=== PATIENT | male | born 1980 | race Caucasian/White ===

== ENCOUNTER 2016-09-12 21:17 | Emergency (ER) | payer OTHER ==
[~2016-09-12 21:17] MED LIST: ARIP400S3 IM; DOXY100T PO; GABA-585 PO; LITH450T16 PO; LITH600C PO; LURA80TA PO; MELA3TAB2 PO; METF500T4 PO; OLAN5TAB3 PO; OMEG1CAP6 PO; QUET50TA5 PO; TRAZ50TA15 PO
[2016-09-12] MEDS ORDERED: THIAMINE 200 MG/2 ML VIAL. IV ONE (21:56)
[2016-09-12] MEDS ORDERED: MVI, ADULT NO.4 WITH VIT K 10 ML VIAL IV ONE (21:56)
[2016-09-12] MEDS ORDERED: IV DEXTROSE 5 %-0.45 % NACL 1,000 ML ONE (21:56)
[2016-09-12] MEDS ORDERED: FOLIC ACID 5 MG/ML SYRINGE for ER IV ONE (21:57)
[2016-09-12] MEDS ORDERED: MVI, ADULT NO.4 WITH VIT K 10 ML, FOLIC ACID SYRINGE for ER 1 MG, THIAMINE 100 MG in IV... IV ONE ×4 (22:00)
--- NOTE | 2016-09-12 22:00 | EKG ---
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
[2016-09-12 22:06] LABS: BASO # 0.1 x10^3/uL (0.0-0.2); BASO % 1 % (0-3); EOS # 0.2 x10^3/uL (0.0-0.7); EOS % 1 % (0-3); HEMATOCRIT 48.1 % (39.0-53.0); HEMOGLOBIN 16.5 g/dL (13.0-17.5); LYMPH # 3.8 x10^3/uL (1.0-4.8); LYMPH % 33 % (24-48); MEAN CORPUSCULAR HEMOGLOBIN 31 pg (25-35); MEAN CORPUSCULAR HGB CONC 34 g/dL (31-37); MEAN CORPUSCULAR VOLUME 89 fL (79-100); MONO # 0.7 x10^3/uL (0.0-1.1); MONO % 7 % (0-9); NEUT # 6.6 x10^3uL (1.8-7.7); NEUT % 58 % (31-73); PLATELET COUNT 148 x10^3/uL (140-400); RED CELL DISTRIBUTION WIDTH 13.7 % (11.5-14.5); WHITE BLOOD COUNT 11.5 x10^3/uL (4.0-11.0)
[2016-09-12 22:11] LABS: CALCIUM 8.9 mg/dL (8.5-10.1); CREATININE 0.9 mg/dL (0.7-1.3); POTASSIUM 3.7 mmol/L (3.5-5.1)
[2016-09-12 22:15] LABS: AMPHETAMINE/METHAMPHETAMINE NEG (NEG); BARBITURATES NEG (NEG); BENZODIAZEPINES NEG (NEG); CANNABINOIDS NEG (NEG); COCAINE NEG (NEG); METHADONE NEG (NEG); OPIATES NEG (NEG); PHENCYCLIDINE NEG (NEG)
[2016-09-12 22:17] LABS: ACETAMIN < 2.0 mcg/mL (10-30); SALIC 5.1 mg/dL (2.8-20.0)
[2016-09-12 22:25] LABS: BACTERIA,URINE 0 /HPF (0-FEW); BILIRUBIN,URINE NEG (NEG); CLARITY,URINE CLEAR; COLOR,URINE YELLOW; GLUCOSE,URINE NEG (NEG); NITRITE,URINE NEG (NEG); RBC,URINE RARE /HPF (0-2); UROBILINOGEN,URINE 0.2 mg/dL (0.2 mg/dL); WBC,URINE OCC /HPF (0-4)
[2016-09-12 22:26] LABS: SQUAMOUS EPITHELIAL CELL,UR FEW /LPF
[2016-09-12 23:46] VITALS: BP 111/65
--- NOTE | 2016-09-13 09:16 | RAD ---
Exam: PA and lateral chest radiograph History: Cough, alcohol intoxication. Comparison: 06/09/2015. Findings: Cardiomediastinal silhouette is within normal limits for size. Bilateral lung lopez are free of focal infiltrate. No pleural effusion is seen. Impression: No acute cardiopulmonary process.
== END 2016-09-13 00:55 | disposition home or self-care (01) ==
LOC: ER 21:17
DX: R45.851 Suicidal ideations (principal); F10.10 Alcohol abuse, uncomplicated; F32.9 Major depressive disorder, single episode, unspecified; E11.9 Type 2 diabetes mellitus without complications; F41.9 Anxiety disorder, unspecified; F12.10 Cannabis abuse, uncomplicated; Z88.6 Allergy status to analgesic agent
CPT/HCPCS: 36415; 71020; 80048; 80305; 81001; 85027; 93005; 96365; 99285; G0480; 80320; G0481

== ENCOUNTER 2017-06-24 12:40 | Emergency (ER) | payer OTHER ==
[~2017-06-24] VITALS: Ht 182.9 cm; Wt 107.0 kg
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
[2017-06-24 13:12] LABS: AMPHETAMINE/METHAMPHETAMINE NEG (NEG); BARBITURATES NEG (NEG); BENZODIAZEPINES NEG (NEG); CANNABINOIDS NEG (NEG); COCAINE NEG (NEG); METHADONE NEG (NEG); OPIATES NEG (NEG); PHENCYCLIDINE NEG (NEG)
[2017-06-24 13:14] LABS: BILIRUBIN,URINE NEG (NEG); CLARITY,URINE CLEAR; COLOR,URINE YELLOW; GLUCOSE,URINE NEG (NEG); NITRITE,URINE NEG (NEG); RBC,URINE 0 /HPF (0-2); UROBILINOGEN,URINE 0.2 mg/dL (0.2 mg/dL)
[2017-06-24 13:15] LABS: BACTERIA,URINE 0 /HPF (0-FEW)
[2017-06-24] MEDS ORDERED: MVI, ADULT NO.4 WITH VIT K 10 ML, FOLIC ACID SYRINGE for ER 1 MG, THIAMINE 100 MG in IV... IV SCH ×4 (13:15)
[2017-06-24] MEDS ORDERED: LORazepam 2 MG/ML VIAL IV ONE (13:15)
[2017-06-24 13:21] LABS: BASO % 0 % (0-3); EOS # 0.3 x10^3/uL (0.0-0.7); EOS % 3 % (0-3); HEMATOCRIT 44.9 % (39.0-53.0); HEMOGLOBIN 15.6 g/dL (13.0-17.5); LYMPH # 3.2 x10^3/uL (1.0-4.8); LYMPH % 39 % (24-48); MEAN CORPUSCULAR HEMOGLOBIN 31 pg (25-35); MEAN CORPUSCULAR HGB CONC 35 g/dL (31-37); MEAN CORPUSCULAR VOLUME 88 fL (79-100); MONO # 0.4 x10^3/uL (0.0-1.1); MONO % 5 % (0-9); NEUT # 4.2 x10^3uL (1.8-7.7); NEUT % 52 % (31-73); PLATELET COUNT 153 x10^3/uL (140-400); RED BLOOD COUNT 5.09 x10^6/uL (4.30-5.70); RED CELL DISTRIBUTION WIDTH 14.1 % (11.5-14.5)
[2017-06-24 13:37] LABS: ACETAMIN < 2.0 mcg/mL (10-30); ALBUMIN 3.5 g/dL (3.4-5.0); ALK PHOS 61 U/L (46-116); ALT (SGPT) 96 U/L (16-63); ANION GAP 10 (6-14); AST (SGOT) 33 U/L (15-37); BLOOD UREA NITROGEN 9 mg/dL (8-26); CALCIUM 8.2 mg/dL (8.5-10.1); CARBON DIOXIDE 25 mmol/L (21-32); CHLORIDE 105 mmol/L (98-107); CREATININE 0.8 mg/dL (0.7-1.3); ETHANOL < 10 mg/dL (0-10); GFR 108.2; GLUCOSE 153 mg/dL (70-99); MAGNESIUM 1.9 mg/dL (1.8-2.4); POTASSIUM 3.5 mmol/L (3.5-5.1); SALIC 4.3 mg/dL (2.8-20.0); SODIUM 140 mmol/L (136-145); TOTAL BILIRUBIN 0.3 mg/dL (0.2-1.0); TOTAL PROTEIN 6.6 g/dL (6.4-8.2)
[2017-06-24 13:38] LABS: DIRECT BILIRUBIN < 0.1 mg/dL (0.0-0.2)
--- NOTE | 2017-06-24 13:42 | EKG ---
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
[2017-06-24 15:32] VITALS: BP 130/80
[2017-06-24 16:05] LABS: LI 0.4 mmol/L (0.6-1.2)
== END 2017-06-24 15:40 | disposition home or self-care (01) ==
LOC: ER 12:40
DX: R45.851 Suicidal ideations (principal); F25.9 Schizoaffective disorder, unspecified; F32.9 Major depressive disorder, single episode, unspecified; E11.9 Type 2 diabetes mellitus without complications; F12.10 Cannabis abuse, uncomplicated; F11.10 Opioid abuse, uncomplicated; F10.20 Alcohol dependence, uncomplicated; Z88.5 Allergy status to narcotic agent
CPT/HCPCS: 36415; 80048; 80076; 80178; 80307; 81001; 83735; 85025; 93005; 96365; 96375; 99285; G0480; J2060; G0479; J7030

== ENCOUNTER 2017-07-13 16:07 | Emergency (ER) | payer OTHER ==
[~2017-07-13] VITALS: Ht 182.9 cm; Wt 107.0 kg
[2017-07-13 16:59] LABS: BASO # 0.1 x10^3/uL (0.0-0.2); BASO % 1 % (0-3); EOS # 0.2 x10^3/uL (0.0-0.7); EOS % 2 % (0-3); HEMATOCRIT 47.8 % (39.0-53.0); HEMOGLOBIN 16.3 g/dL (13.0-17.5); LYMPH # 3.3 x10^3/uL (1.0-4.8); LYMPH % 34 % (24-48); MEAN CORPUSCULAR HEMOGLOBIN 30 pg (25-35); MEAN CORPUSCULAR HGB CONC 34 g/dL (31-37); MEAN CORPUSCULAR VOLUME 89 fL (79-100); MONO # 0.6 x10^3/uL (0.0-1.1); MONO % 6 % (0-9); NEUT # 5.7 x10^3uL (1.8-7.7); NEUT % 58 % (31-73); PLATELET COUNT 163 x10^3/uL (140-400); RED CELL DISTRIBUTION WIDTH 13.9 % (11.5-14.5); WHITE BLOOD COUNT 9.8 x10^3/uL (4.0-11.0)
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
[2017-07-13 17:11] LABS: ALBUMIN 3.9 g/dL (3.4-5.0); AMPHETAMINE/METHAMPHETAMINE NEG (NEG); BARBITURATES NEG (NEG); BENZODIAZEPINES NEG (NEG); CANNABINOIDS NEG (NEG); COCAINE NEG (NEG); CREATININE 0.9 mg/dL (0.7-1.3); DIRECT BILIRUBIN 0.1 mg/dL (0.0-0.2); GFR 94.4; METHADONE NEG (NEG); OPIATES NEG (NEG); PHENCYCLIDINE NEG (NEG); POTASSIUM 3.9 mmol/L (3.5-5.1); TOTAL BILIRUBIN 0.3 mg/dL (0.2-1.0); TOTAL PROTEIN 7.2 g/dL (6.4-8.2)
[2017-07-13 17:19] LABS: BACTERIA,URINE 0 /HPF (0-FEW); BILIRUBIN,URINE NEG (NEG); CLARITY,URINE CLEAR; COLOR,URINE YELLOW; GLUCOSE,URINE NEG (NEG); NITRITE,URINE NEG (NEG); RBC,URINE 0 /HPF (0-2); SQUAMOUS EPITHELIAL CELL,UR OCC /LPF; UROBILINOGEN,URINE 0.2 mg/dL (0.2 mg/dL); WBC,URINE OCC /HPF (0-4)
[2017-07-13 20:39] VITALS: BP 112/87
== END 2017-07-13 20:41 | disposition home or self-care (01) ==
LOC: ER 16:07 → EEVIPCON 16:07 → ER 20:41
DX: R45.851 Suicidal ideations (principal); R45.850 Homicidal ideations; E11.9 Type 2 diabetes mellitus without complications; F20.9 Schizophrenia, unspecified; F32.9 Major depressive disorder, single episode, unspecified; F41.9 Anxiety disorder, unspecified; F15.10 Other stimulant abuse, uncomplicated; F12.10 Cannabis abuse, uncomplicated; F11.10 Opioid abuse, uncomplicated; Z88.5 Allergy status to narcotic agent
CPT/HCPCS: 36415; 80048; 80076; 80307; 81001; 85025; 99284; G0480; G0479

== ENCOUNTER 2018-02-12 00:04 | Emergency (ER) | payer OTHER ==
[~2018-02-12] VITALS: Ht 182.9 cm; Wt 104.3 kg
[~2018-02-12 00:04] MED LIST changes: +METF500T16 PO; -METF500T4 PO; +TRAZ-85 PO; -TRAZ50TA15 PO
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
[2018-02-12] MEDS: oxyCODONE/APAP 5/325 1 TAB TABLET PO ONE (00:56)
[2018-02-12] MEDS: TETANUS AND DIPHTHERIA TOX/PF 0.5 ML VIAL. VAX IM ONE (00:57)
[2018-02-12 01:00] VITALS: BP 135/98
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
== END 2018-02-12 01:09 | disposition home or self-care (01) ==
LOC: ER 00:04
DX: S60.512A Abrasion of left hand, initial encounter (principal); F25.9 Schizoaffective disorder, unspecified; F19.10 Other psychoactive substance abuse, uncomplicated; F15.10 Other stimulant abuse, uncomplicated; F12.10 Cannabis abuse, uncomplicated; F14.10 Cocaine abuse, uncomplicated; F41.9 Anxiety disorder, unspecified; F32.9 Major depressive disorder, single episode, unspecified; E11.9 Type 2 diabetes mellitus without complications; F17.210 Nicotine dependence, cigarettes, uncomplicated; Z88.5 Allergy status to narcotic agent; W22.01XA Walked into wall, initial encounter; Y93.89 Activity, other specified; Y92.89 Other specified places as the place of occurrence of the external cause; Y99.8 Other external cause status
CPT/HCPCS: 29125; 73130; 90471; 90714; 99284-25

== ENCOUNTER 2018-07-18 23:36 | Emergency (ER) | payer MEDICAID, OTHER ==
[~2018-07-18] VITALS: Ht 182.9 cm; Wt 103.2 kg
[~2018-07-18 23:36] MED LIST changes: +TRAZ-120 PO; -TRAZ-85 PO
--- NOTE | 2018-07-18 23:47 | PHYS DOC ---
Past History Past Medical History: Anxiety, Depression, Diabetes, Schizophrenia, Other Past Surgical History: Other Smoking: Cigarettes Alcohol Use: Occasionally Drug Use: Amphetamine, Marijuana, Other Adult General Chief Complaint Chief Complaint: suicidal thoughts [facility] Patient is a 38-year-old male who presents with report of suicide attempt at home. Patient states that he has been depressed and feeling lonely and tonight started hearing voices in his mind telling him to just go ahead and kill himself. He states that initially he had planned to jump off of his balcony but states that something had stopped him. He states these not sure if it was got her what it was but he decided to get naked in bed and cut his wrists. He realized that he had only cut professionally and so decided that he was doing the wrong thing and decided to call 911. He does report to moderate pain in his wrist where he cut it. He denies any significant loss of blood. Review of Systems Review of Systems Constitutional: Denies fever or chills [] Respiratory: Denies cough or shortness of breath [] Cardiovascular: No additional information not addressed in HPI [] Integument: Positive laceration[] All other systems were reviewed and found to be within normal limits, except as documented in this note. Allergies Allergies Allergies Coded Allergies Type Severity Reaction Last Updated Verified codeine Allergy Intermediate 05/26/15 Yes Physical Exam Physical Exam Constitutional: Well developed, well nourished, no acute distress, non-toxic appearance. [] HENT: Normocephalic, atraumatic, bilateral external ears normal, oropharynx moist, no oral exudates, nose normal. [] Eyes: PERRLA, EOMI, conjunctiva normal, no discharge. [] Neck: Normal range of motion, no tenderness, supple, no stridor. [] Cardiovascular: Mildly tachycardic rate with regular rhythm[] Lungs & Thorax: Bilateral breath sounds clear to auscultation [] Abdomen: Bowel sounds normal, soft, no tenderness. [] Skin: Warm, dry. [] Back: No tenderness, no CVA tenderness. [] Extremities: There is very superficial cuts/lacerations to both wrists, with right wrist worse. Lacerations extend no further than dermis and require no repair. [] Neurologic: Alert and oriented X 3, no focal deficits noted. [] Psychologic: Flattened affect with depressed mood. [] EKG EKG [] Radiology/Procedures Radiology/Procedures [] Course & Med Decision Making Course & Med Decision Making Pertinent Labs and Imaging studies reviewed. (See chart for details) Patient seen and evaluated by ER medical staff and a mental health work up has been completed on this patient. At this time patient is medically cleared and is awaiting placement at mental health facility. Patient is being signed out to oncoming ER physician, Dr. Ham, at 6:00 AM. Dragon Disclaimer Dragon Disclaimer This electronic medical record was generated, in whole or in part, using a voice recognition dictation system. Departure Departure: Impression: Primary Impression: Suicidal ideation Additional Impression: Acute psychosis Referrals: JOSE MOYER (PCP) Problem Qualifiers ANTONIO UGARTE Jr. DO Jul 18, 2018 23:47
[2018-07-19 00:18] LABS: BASO # 0.1 x10^3/uL (0.0-0.2); BASO % 1 % (0-3); EOS # 0.3 x10^3/uL (0.0-0.7); EOS % 3 % (0-3); HEMATOCRIT 45.9 % (39.0-53.0); HEMOGLOBIN 15.9 g/dL (13.0-17.5); LYMPH # 3.6 x10^3/uL (1.0-4.8); LYMPH % 35 % (24-48); MEAN CORPUSCULAR HEMOGLOBIN 30 pg (25-35); MEAN CORPUSCULAR HGB CONC 35 g/dL (31-37); MEAN CORPUSCULAR VOLUME 86 fL (79-100); MONO # 0.8 x10^3/uL (0.0-1.1); MONO % 7 % (0-9); NEUT # 5.4 x10^3uL (1.8-7.7); NEUT % 53 % (31-73); PLATELET COUNT 171 x10^3/uL (140-400); RED BLOOD COUNT 5.36 x10^6/uL (4.30-5.70); RED CELL DISTRIBUTION WIDTH 13.7 % (11.5-14.5); WHITE BLOOD COUNT 10.2 x10^3/uL (4.0-11.0)
[2018-07-19 00:25] LABS: AMPHETAMINE/METHAMPHETAMINE NEG (NEG); BARBITURATES NEG (NEG); BENZODIAZEPINES NEG (NEG); CANNABINOIDS NEG (NEG); COCAINE NEG (NEG); METHADONE NEG (NEG); OPIATES NEG (NEG); PHENCYCLIDINE NEG (NEG)
[2018-07-19 00:26] LABS: ACETAMIN < 2 mcg/mL (10-30); ETHANOL < 10 mg/dL (0-10); SALIC 2.6 mg/dL (2.8-20.0)
[2018-07-19 00:28] LABS: ALBUMIN 3.8 g/dL (3.4-5.0); CALCIUM 8.7 mg/dL (8.5-10.1); CREATININE 1.1 mg/dL (0.7-1.3); DIRECT BILIRUBIN 0.1 mg/dL (0.0-0.2); GFR 74.5; POTASSIUM 3.3 mmol/L (3.5-5.1); TOTAL BILIRUBIN 0.6 mg/dL (0.2-1.0); TOTAL PROTEIN 7.2 g/dL (6.4-8.2)
[2018-07-19] MEDS ORDERED: IV NORMAL SALINE 1,000ML 1,000 ML IV ONE (00:30)
[2018-07-19 00:33] LABS: BILIRUBIN,URINE NEG (NEG); CLARITY,URINE CLEAR; COLOR,URINE AMBER; GLUCOSE,URINE NEG (NEG)
[2018-07-19 00:34] LABS: BACTERIA,URINE 0 /HPF (0-FEW); NITRITE,URINE NEG (NEG); RBC,URINE 0 /HPF (0-2); SQUAMOUS EPITHELIAL CELL,UR OCC /LPF; UROBILINOGEN,URINE 0.2 mg/dL (0.2 mg/dL); WBC,URINE 0 /HPF (0-4)
[2018-07-19] MEDS ORDERED: NEOMY/BACITR/POLYMYXIN OINT PACKET. TP ONE (01:30)
[2018-07-19] MEDS ORDERED: IBUPROFEN 600 MG TABLET. PO ONE (01:30)
[2018-07-19] MEDS ORDERED: POTASSIUM CHLORIDE 20 MEQ TABLET.ER. PO ONE (07:15)
[2018-07-19 07:20] VITALS: BP 119/79
== END 2018-07-19 07:51 | disposition short-term general hospital (02) ==
LOC: ER 23:36
DX: S61.511A Laceration without foreign body of right wrist, initial encounter (principal); F23 Brief psychotic disorder; R45.851 Suicidal ideations; F41.9 Anxiety disorder, unspecified; F31.9 Bipolar disorder, unspecified; E11.9 Type 2 diabetes mellitus without complications; F20.9 Schizophrenia, unspecified; F17.210 Nicotine dependence, cigarettes, uncomplicated; Z88.5 Allergy status to narcotic agent; X78.8XXA Intentional self-harm by other sharp object, initial encounter; Y93.89 Activity, other specified; Y92.89 Other specified places as the place of occurrence of the external cause; Y99.8 Other external cause status
CPT/HCPCS: 36415; 80048; 80076; 80307; 80329; 81001; 85025; 99285; G0480; 82003; J7030

== ENCOUNTER 2018-08-05 15:11 | Inpatient (IN) | payer OTHER ==
[~2018-08-05] VITALS: Ht 182.9 cm; Wt 98.7 kg
[2018-08-05] MEDS ORDERED: IV NORMAL SALINE 1,000ML 1,000 ML IV ONE (15:30)
[2018-08-05] MEDS ORDERED: ONDANSETRON PF 4 MG/2 ML VIAL. ONE (15:39)
[2018-08-05 15:47] LABS: BASO # 0.1 x10^3/uL (0.0-0.2); BASO % 1 % (0-3); EOS # 0.1 x10^3/uL (0.0-0.7); EOS % 1 % (0-3); HEMATOCRIT 46.9 % (39.0-53.0); HEMOGLOBIN 15.9 g/dL (13.0-17.5); LYMPH # 2.5 x10^3/uL (1.0-4.8); LYMPH % 20 % (24-48); MEAN CORPUSCULAR HEMOGLOBIN 29 pg (25-35); MEAN CORPUSCULAR HGB CONC 34 g/dL (31-37); MEAN CORPUSCULAR VOLUME 86 fL (79-100); MONO # 0.6 x10^3/uL (0.0-1.1); MONO % 5 % (0-9); NEUT # 8.9 x10^3uL (1.8-7.7); NEUT % 73 % (31-73); PLATELET COUNT 209 x10^3/uL (140-400); RED BLOOD COUNT 5.45 x10^6/uL (4.30-5.70); WHITE BLOOD COUNT 12.3 x10^3/uL (4.0-11.0)
--- NOTE | 2018-08-05 15:55 | PHYS DOC ---
Past History Past Medical History: Anxiety, Depression, Diabetes Past Surgical History: No Surgical History Smoking: Cigarettes Alcohol Use: Occasionally Drug Use: Marijuana Adult General Chief Complaint Chief Complaint: Suicide attempt HPI HPI 38-year-old male presents with suicide attempt. The patient has known mental health problems. He states that his schizophrenia. He told me that the voices told him to cut both of his wrists. They were quite compelling and he was unable to resist. The patient also took 10 NyQuil and 20 DayQuil at 1400. It is now 1550. The patient has had no vomiting but has some nausea. He has multiple suicide attempts in the past. He states that he is taking HIS psychiatric medications but he still is hearing voices. He was recently discharged from a psychiatric facility couple weeks ago. He denies fever or chills. He denies recent use of alcohol and states that he uses marijuana once a week. He denies fever or chills. Review of Systems Review of Systems Constitutional: Denies fever or chills [] Eyes: Denies change in visual acuity, redness, or eye pain [] HENT: Denies nasal congestion or sore throat [] Respiratory: Denies cough or shortness of breath [] Cardiovascular: No additional information not addressed in HPI [] GI: Denies abdominal pain, nausea, vomiting, bloody stools or diarrhea [] : Denies dysuria or hematuria [] Musculoskeletal: Denies back pain or joint pain [] Integument: forearm lacerations [] Neurologic: Denies headache, focal weakness or sensory changes [] Endocrine: Denies polyuria or polydipsia [] All other systems were reviewed and found to be within normal limits, except as documented in this note. Current Medications Current Medications Current Medications Medications (Trade) Dose Ordered Sig/Refugio Start Time Stop Time Status Last Admin Dose Admin Ondansetron HCl (Zofran) 4 mg 1X ONCE 08/05/18 15:45 08/05/18 15:46 UNV Sodium Chloride 1,000 ml @ 1,000 mls/hr 1X ONCE 08/05/18 15:30 08/05/18 16:29 Allergies Allergies Allergies Coded Allergies Type Severity Reaction Last Updated Verified codeine Allergy Intermediate 05/26/15 Yes Physical Exam Physical Exam Constitutional: Well developed, well nourished, no acute distress, non-toxic appearance. [] HENT: Normocephalic, atraumatic, bilateral external ears normal, oropharynx moist, no oral exudates, nose normal. [] Eyes: PERRLA, EOMI, conjunctiva normal, no discharge. [] Neck: Normal range of motion, no tenderness, supple, no stridor. [] Cardiovascular:Heart rate regular rhythm, no murmur [] Lungs & Thorax: Bilateral breath sounds clear to auscultation [] Abdomen: Bowel sounds normal, soft, no tenderness, no masses, no pulsatile masses. [] Skin: 4cm linear lacerations in the bilateral forearms, no deep layer involveme nt. [] Back: No tenderness, no CVA tenderness. [] Extremities: No tenderness, no cyanosis, no clubbing, ROM intact, no edema. [] Neurologic: Alert and oriented X 3, normal motor function, normal sensory function, no focal deficits noted. [] Psychologic: Affect blunted, judgement impaired, mood normal. [] Current Patient Data Lab Results Laboratory Tests Test 08/05/18 15:23 White Blood Count 12.3 x10^3/uL (4.0-11.0) H Red Blood Count 5.45 x10^6/uL (4.30-5.70) Hemoglobin 15.9 g/dL (13.0-17.5) Hematocrit 46.9 % (39.0-53.0) Mean Corpuscular Volume 86 fL (79-100) Mean Corpuscular Hemoglobin 29 pg (25-35) Mean Corpuscular Hemoglobin Concent 34 g/dL (31-37) Red Cell Distribution Width 14.0 % (11.5-14.5) Platelet Count 209 x10^3/uL (140-400) Neutrophils (%) (Auto) 73 % (31-73) Lymphocytes (%) (Auto) 20 % (24-48) L Monocytes (%) (Auto) 5 % (0-9) Eosinophils (%) (Auto) 1 % (0-3) Basophils (%) (Auto) 1 % (0-3) Neutrophils # (Auto) 8.9 x10^3uL (1.8-7.7) H Lymphocytes # (Auto) 2.5 x10^3/uL (1.0-4.8) Monocytes # (Auto) 0.6 x10^3/uL (0.0-1.1) Eosinophils # (Auto) 0.1 x10^3/uL (0.0-0.7) Basophils # (Auto) 0.1 x10^3/uL (0.0-0.2) EKG EKG Sinus rhythm, rate 69, normal axis, no SOB lesions or depressions, QTC 402[] Radiology/Procedures Radiology/Procedures [] Course & Med Decision Making Course & Med Decision Making Pertinent Labs and Imaging studies reviewed. (See chart for details) His EKG does not have a prolonged QT. The patient has been very cooperative and appreciative of our care. The patient's labs are significant for an acetaminophen level of 83.7. This is roughly a 2 hour level. A four-hour level has been ordered. His lactic acid is also 2.4. The patient is given 2 L normal saline. Poison control has been consulted and we are monitoring the patient's labs and EKG as advised. The patient is mentating well at this time. He is complaining of some altered sensorium and mild vision "fogginess". He is able to answer all questions appropriately. I was able to repair the patient's 2 forearm lacerations. See note below for details. I discussed the patient with Dr. Hong and he has agreed to admit the patient. Repeat acetaminophen level will performed prior to admission. [] Dragon Disclaimer Dragon Disclaimer This electronic medical record was generated, in whole or in part, using a voice recognition dictation system. Laceration Repair Lac Repair Indication: []Suture repair of 2 lacerations of the forearm. One on each forearm, each 4 cm in length. Procedure: The patient gave me verbal consent for suture repair of his 2 forearm lacerations. The wounds were thoroughly irrigated with saline Hibiclens solution. No foreign bodies were found. I anesthetized the patient with 2% lidocaine with epinephrine. A total of 2 mL was used on each side for a grand total of 4 mL. After good anesthesia was achieved, I repaired the right arm laceration with 6 4-0 Ethilon sutures in interrupted fashion. There was good skin approximation. There was no further bleeding. I repaired the left forearm with 6 4-0 Ethilon sutures in interrupted fashion. There was also good skin approximation and no further bleeding. Total repaired wound length: [4cm, 4cm Other Items: [2 lacerations The patient tolerated the procedure well. Complications: none. Departure Departure: Impression: Primary Impression: Suicide attempt by substance overdose Additional Impressions: Suicide attempt by method other than substance overdose Schizophrenia Disposition: ADMITTED INPATIENT Condition: GUARDED Referrals: JOSE MOYER (PCP) Problem Qualifiers Primary Impression: Suicide attempt by substance overdose Encounter type: initial encounter Qualified Codes: T65.92XA - Toxic effect of unspecified substance, intentional self-harm, initial encounter Additional Impressions: Schizophrenia Schizophrenia type: unspecified Qualified Codes: F20.9 - Schizophrenia, unspecified TRUDY GUAMAN DO Aug 05, 2018 15:55
[2018-08-05] MEDS ORDERED: ONDANSETRON PF 4 MG/2 ML VIAL. IV ONE (16:00)
[2018-08-05 16:01] LABS: ACETAMIN 83.7 mcg/mL (10-30); SALIC 3.2 mg/dL (2.8-20.0)
[2018-08-05 16:02] LABS: ALBUMIN/GLOBULIN RATIO 1.1 (1.0-1.7); CALCIUM 9.2 mg/dL (8.5-10.1); GFR 83.2; POTASSIUM 3.8 mmol/L (3.5-5.1); TOTAL BILIRUBIN 0.4 mg/dL (0.2-1.0); TOTAL PROTEIN 7.5 g/dL (6.4-8.2)
--- NOTE | 2018-08-05 17:43 | EKG ---
[address] [address] Test Date: 2018-08-05 Test Time: 16:17:24 Pat Name: ELEAZAR PERAZA Department: Room: Gender: M [employer]: NANCY : 1980 Requested By: TRUDY GUAMAN Order Number: [id number] Reading MD: Migel Dobbs Measurements Intervals [place] Rate: 69 P: -30 OK: 168 QRS: 35 QRSD: 88 T: 19 QT: 374 QTc: 402 Interpretive Statements SINUS RHYTHM NONSPECIFIC ST-T WAVE CHANGES. POSSIBLY ABNORMAL ECG Electronically Signed On 08-12-2018 11:18:08 CDT by Migel Dobbs
[2018-08-05 17:49] LABS: BACTERIA,URINE 0 /HPF (0-FEW); BILIRUBIN,URINE NEG (NEG); CLARITY,URINE CLEAR; COLOR,URINE YELLOW; GLUCOSE,URINE NEG (NEG); NITRITE,URINE NEG (NEG); RBC,URINE 0 /HPF (0-2); SQUAMOUS EPITHELIAL CELL,UR OCC /LPF; UROBILINOGEN,URINE 0.2 mg/dL (0.2 mg/dL)
[2018-08-05 17:50] LABS: AMORPHOUS SEDIMENT,UR PRESENT /HPF; BARBITURATES NEG (NEG); BENZODIAZEPINES NEG (NEG); CANNABINOIDS NEG (NEG); COCAINE NEG (NEG); METHADONE NEG (NEG); OPIATES NEG (NEG); PHENCYCLIDINE NEG (NEG)
[2018-08-05 17:51] LABS: AMPHETAMINE/METHAMPHETAMINE NEG (NEG)
[2018-08-05 18:51] LABS: ACETAMIN 82.8 mcg/mL (10-30)
[2018-08-05 19:29] VITALS: BP 147/96
[2018-08-05 20:20] VITALS: BP 144/96
[2018-08-05] MEDS ORDERED: POTASSIUM CL 20MEQ D5-0.9%NACL 1,000 ML IV SCH (21:00)
[2018-08-05] MEDS: INSULIN LISPRO 300 UNITS/3 ML INSULN.PEN. SQ SCH (21:00)
[2018-08-05] MEDS ORDERED: GABAPENTIN 100 MG CAPSULE. PO SCH (21:00)
[2018-08-05] MEDS ORDERED: DEXTROSE 50% 25 GM / 50ML DISP.SYRIN. IV PRN (21:00)
[2018-08-05 21:15] VITALS: BP 147/88
[2018-08-05] MEDS: NICOTINE 21MG PATCH. TD SCH (22:00)
[2018-08-05] MEDS: GABAPENTIN 300 MG CAPSULE. PO SCH (22:05)
[2018-08-05] MEDS: MELATONIN 3 MG TABLET PO SCH (22:05)
[2018-08-05] MEDS: ONDANSETRON PF 4 MG/2 ML VIAL. IV PRN (22:06)
[2018-08-05] MEDS: LITHIUM CARBONATE ER 450 MG TABLET.ER PO SCH (22:21)
[2018-08-05] MEDS: POTASSIUM CL 20MEQ D5-0.45NACL 1,000 ML IV SCH (22:22)
[2018-08-05 22:43] VITALS: BP 157/84
[2018-08-06] VITALS (19 sets, daily range): BP systolic 120–161; BP diastolic 68–95
[2018-08-06 06:41] LABS: BASO # 0.1 x10^3/uL (0.0-0.2); BASO % 1 % (0-3); EOS # 0.2 x10^3/uL (0.0-0.7); EOS % 2 % (0-3); HEMATOCRIT 41.1 % (39.0-53.0); HEMOGLOBIN 14.1 g/dL (13.0-17.5); LYMPH # 2.8 x10^3/uL (1.0-4.8); LYMPH % 36 % (24-48); MEAN CORPUSCULAR HEMOGLOBIN 30 pg (25-35); MEAN CORPUSCULAR HGB CONC 34 g/dL (31-37); MEAN CORPUSCULAR VOLUME 87 fL (79-100); MONO # 0.5 x10^3/uL (0.0-1.1); MONO % 7 % (0-9); NEUT # 4.2 x10^3uL (1.8-7.7); NEUT % 54 % (31-73); PLATELET COUNT 171 x10^3/uL (140-400); RED BLOOD COUNT 4.72 x10^6/uL (4.30-5.70); RED CELL DISTRIBUTION WIDTH 14.4 % (11.5-14.5); WHITE BLOOD COUNT 7.7 x10^3/uL (4.0-11.0)
[2018-08-06 06:51] LABS: ALBUMIN 3.1 g/dL (3.4-5.0); ALBUMIN/GLOBULIN RATIO 1.1 (1.0-1.7); CALCIUM 7.8 mg/dL (8.5-10.1); CREATININE 0.9 mg/dL (0.7-1.3); GFR 93.9; POTASSIUM 3.9 mmol/L (3.5-5.1); TOTAL BILIRUBIN 0.5 mg/dL (0.2-1.0)
[2018-08-06] MEDS: INSULIN LISPRO 300 UNITS/3 ML INSULN.PEN. SQ SCH ×3 (07:30→16:30)
[2018-08-06 08:27] LABS: ACETAMIN 4.9 mcg/mL (10-30)
[2018-08-06] MEDS: LURASIDONE 40 MG TABLET. PO SCH (08:27)
[2018-08-06] MEDS: POTASSIUM CL 20MEQ D5-0.45NACL 1,000 ML IV SCH ×2 (08:27→18:00)
[2018-08-06] MEDS: NICOTINE 21MG PATCH. TD SCH (08:27)
[2018-08-06] MEDS: GABAPENTIN 300 MG CAPSULE. PO SCH ×2 (08:27→20:16)
[2018-08-06] MEDS: LITHIUM CARBONATE ER 450 MG TABLET.ER PO SCH ×2 (08:27→20:15)
[2018-08-06] MEDS: ONDANSETRON PF 4 MG/2 ML VIAL. IV PRN (11:03)
--- NOTE | 2018-08-06 17:04 | HP ---
ADMIT DATE: 08/05/2018 HISTORY OF PRESENT ILLNESS: The patient is a 38-year-old male patient, who presented to Emergency Room with suicidal attempt. The patient has known mental health problems. He stated that he has schizophrenia and that his voices told him to cut both of his wrists. They were quite compelling and he was unable to resist. The patient also took 10 NyQuil and 20 DayQuil at 2:00 and around 1550. He arrived to the Emergency Room. The patient has denied any vomiting, but has some nausea. By the time arrived, he has multiple suicidal attempts in the past. He stated that he has been taking his psychiatric medication. He still is hearing voices, who was recently discharged from the psychiatric facility only 2 weeks ago. He denied any recent use of alcohol or other drugs. He was evaluated in the Emergency Room and he was found to have a laceration of his both wrists that were repaired, one on each forearm each about 4 cm in length. His Tylenol level when he arrived was about 18.3 and 4 hours later, it was 82.8 and his level has been declining. The Poison Control Center was informed and we followed all their recommendation. Apparently, the patient did not require any antidote and was admitted to ICU with one-on-one sitter. PAST MEDICAL HISTORY: Significant for type 2 diabetes as well as depression and schizophrenia. PAST SURGICAL HISTORY: Significant for removal of cyst in his left kidney about three and a half years ago. ALLERGIES: HE IS ALLERGIC TO CODEINE. MEDICATIONS: He is currently on following medications: He is on gabapentin 300 mg twice a day, trazodone 50 mg at bedtime, aripiprazole 400 mg intramuscular, Latuda 120 mg p.o. daily, olanzapine 5 mg every other day. He is on lithium carbonate 450 mg twice a day, metformin 500 mg daily and melatonin 3 mg at bedtime. FAMILY HISTORY: He has 2 sisters, both older and healthy. His mother has diabetes and father is healthy. SOCIAL HISTORY: He is single, has no children. He smokes at least he used to smoke 2 packs a day. He did drink alcohol heavily, although he does not drink any more alcohol or used to smoke marijuana. REVIEW OF SYSTEMS: The patient stated that his voices were compelling and he was [id number] to resist his orders. Denied any blurring of vision, cataract, glaucoma or macular degeneration. Denied any stuffy nose, postnasal drip or nosebleeds. Denied any sore throat, sore tongue, toothache, hoarseness of voice or difficulty swallowing. Did complain of nausea, but no vomiting. Denied any diarrhea or constipation. Denied any hematemesis, melena or hematochezia. Denied any dysuria, frequency or hematuria. PHYSICAL EXAMINATION: VITAL SIGNS: His heart rate on arrival was 76, blood pressure 165/95, temperature was 98.9, respiratory rate 20, and oxygen saturation was 97%. HEAD, EYES, EARS, NOSE AND THROAT: Showed normocephalic, atraumatic. NECK: Supple. HEART: Showed normal first and second heart sounds with no gallop, rub or murmur. CHEST: Clear to auscultation. No crepitation or rhonchi. ABDOMEN: Distended, soft, nontender. NEUROLOGIC: He was awake, alert, responding appropriately. All cranial nerves intact. EXTREMITIES: He moves extremities without difficulty, has one laceration about 4 cm long on each side of the forearm, longitudinal as well cleaned and sutured by the ER physician. LABORATORY DATA: His lab work on arrival showed a white cell count of 12,300, hemoglobin 15.9, hematocrit 46.9, MCV 86 and platelet count 209,000 with normal manual differential. His chemistry showed a serum sodium 140, potassium 3.8, chloride 103, bicarbonate 25, anion gap of 12, BUN 8, creatinine 1, estimated GFR was 83 mL per minute, his glucose 135, calcium was 9.2. Total bilirubin, AST, ALT, alkaline phosphatase were normal. Total protein was 7.5, albumin was 4. Urinalysis showed the urine was yellow, clear with a pH of 5.5, specific gravity of 1.015. The urine was negative for protein, glucose, ketones, blood, nitrite and leukocyte esterase. There are no rbc's, 1-4 wbc's and very few bacteria. His toxic screen showed that his Tylenol level was 83.7 while salicylate was only 3.2. Toxic screen was negative for opiate, methadone, barbiturates, phencyclidine, amphetamine, methamphetamine, benzodiazepine, cocaine, cannabinoids and alcohol. The patient was admitted to the ICU and his Tylenol level was monitored as per Poison Control Center. Obviously, if indicated he will be started on acetylcysteine. YADIRA COSTA MD DR: Camilla JOB#: [id number] / [id number]
[2018-08-06] MEDS: MELATONIN 3 MG TABLET PO SCH (20:15)
[2018-08-06] MEDS: oxyCODONE IR 5 MG TABLET PO PRN (20:15)
--- NOTE | 2018-08-06 21:21 | PN ---
DATE: 08/06/2018 SUBJECTIVE: The patient was admitted yesterday with a suicide attempt by slitting his both wrists, likely longitudinally, although he has bled significantly. No neurovascular damage was sustained. His laceration was cleaned and sutured at the Emergency Room; however, he also took DayQuil and NyQuil and his Tylenol level was high at 83.7 that came down steadily, do not require any antidote and by this morning, his Tylenol level was only 4.9 mcg/mL. The patient is awake, alert. He apparently is remorseful and did not realize that the acetaminophen can be lethal. The plan is for the Tylenol level ____ before he can be considered for inpatient psychiatric admission. PHYSICAL EXAMINATION: GENERAL: When I saw him this afternoon, he looked well and was clearly in no apparent respiratory distress. No pallor, jaundice or cyanosis. No lymphadenopathy, no thyromegaly. No jugular venous distension. No lower limb edema. VITAL SIGNS: His heart rate was 68, blood pressure 136/68, temperature was 98.4, respiratory rate 20, and oxygen saturation was 99%. The rest of clinical examination is stable, has not really changed. His intake over the last 24 hours was 2250, and output was 600. LABORATORY DATA: His lab work this morning showed his white cell count is down to 7700, hemoglobin 14, hematocrit 41, MCV 87, and platelet count of 171,000. His chemistry showed a serum sodium 140, potassium 3.8, chloride 103, bicarbonate 25, anion gap of 12, BUN 8, creatinine 1, estimated GFR was 83 mL per minute. His glucose 135, calcium was 9.2. Total bilirubin, AST, ALT, alkaline phosphatase were normal. His total protein was 7.5, albumin was 4. His Tylenol level this morning was 4.9 mcg/mL. ASSESSMENT: Suicidal attempt by substance overdose as well as by slitting his wrist, both sides; schizophrenia, and type 2 diabetes. YADIRA COSTA MD DR: JERE/simone JOB#: [id number] / [id number]
--- NOTE | 2018-08-06 22:36 | PDOC ---
Exam Note: Filippo Note: Please also refer to the separate dictated note~for this date of service dictated separately.~Patient seen individually. Discussed the patient with Nursing staff reviewed the chart.~Reviewed interim history and current functioning. Reviewed vital signs,~Labs/ Radiology~and current medications noted below. Continue current treatment with the changes noted in the dictated addendum note Assessment: Vital Signs: Vital Signs Date Time Temp Pulse Resp B/P (MAP) Pulse Ox O2 Delivery O2 Flow Rate FiO2 08/06/18 21:44 69 14 135/91 (106) Room Air 08/06/18 20:15 94 08/06/18 20:08 98.5 I&O Intake and Output 08/06/18 07:00 Intake Total 2259 ml Output Total 600 ml Balance 1659 ml Intake Oral 600 ml IV Total 1659 ml Output Urine Total 600 ml Labs: Laboratory Tests Test 08/06/18 05:45 08/06/18 19:54 White Blood Count 7.7 x10^3/uL (4.0-11.0) Red Blood Count 4.72 x10^6/uL (4.30-5.70) Hemoglobin 14.1 g/dL (13.0-17.5) Hematocrit 41.1 % (39.0-53.0) Mean Corpuscular Volume 87 fL (79-100) Mean Corpuscular Hemoglobin 30 pg (25-35) Mean Corpuscular Hemoglobin Concent 34 g/dL (31-37) Red Cell Distribution Width 14.4 % (11.5-14.5) Platelet Count 171 x10^3/uL (140-400) Neutrophils (%) (Auto) 54 % (31-73) Lymphocytes (%) (Auto) 36 % (24-48) Monocytes (%) (Auto) 7 % (0-9) Eosinophils (%) (Auto) 2 % (0-3) Basophils (%) (Auto) 1 % (0-3) Neutrophils # (Auto) 4.2 x10^3uL (1.8-7.7) Lymphocytes # (Auto) 2.8 x10^3/uL (1.0-4.8) Monocytes # (Auto) 0.5 x10^3/uL (0.0-1.1) Eosinophils # (Auto) 0.2 x10^3/uL (0.0-0.7) Basophils # (Auto) 0.1 x10^3/uL (0.0-0.2) Sodium Level 140 mmol/L (136-145) Potassium Level 3.9 mmol/L (3.5-5.1) Chloride Level 105 mmol/L (98-107) Carbon Dioxide Level 26 mmol/L (21-32) Anion Gap 9 (6-14) Blood Urea Nitrogen 8 mg/dL (8-26) Creatinine 0.9 mg/dL (0.7-1.3) Estimated GFR (Cockcroft-Gault) 93.9 BUN/Creatinine Ratio 9 (6-20) Glucose Level 124 mg/dL (70-99) H Calcium Level 7.8 mg/dL (8.5-10.1) #L Total Bilirubin 0.5 mg/dL (0.2-1.0) Aspartate Amino Transferase (AST) 18 U/L (15-37) Alanine Aminotransferase (ALT) 65 U/L (16-63) H Alkaline Phosphatase 54 U/L (46-116) Total Protein 6.0 g/dL (6.4-8.2) L Albumin 3.1 g/dL (3.4-5.0) L Albumin/Globulin Ratio 1.1 (1.0-1.7) Acetaminophen Level 4.9 mcg/mL (10-30) L Acetaminophen Last Dose Date 08/06/18 Acetaminophen Last Dose Time 1400 Glucose (Fingerstick) 134 mg/dL (70-99) H Current Medications: Meds: Current Medications Sodium Chloride 1,000 ml @ 1,000 mls/hr 1X ONCE IV Last administered on 08/05/18at 16:45; Start 08/05/18 at 15:30; Stop 08/05/18 at 16:29; Status DC Ondansetron HCl (Zofran) 4 mg STK-MED ONCE .ROUTE ; Start 08/05/18 at 15:39; Stop 08/05/18 at 15:40; Status DC Ondansetron HCl (Zofran) 4 mg 1X ONCE IV Last administered on 08/05/18at 16:45; Start 08/05/18 at 16:00; Stop 08/05/18 at 16:01; Status DC Gabapentin (Neurontin) 300 mg BID PO ; Start 08/05/18 at 21:00; Stop 08/05/18 at 21:27; Status DC Kirkpatrick Carbonate (Eskalith) 450 mg BID PO Last administered on 08/06/18 20:15; Start 08/05/18 at 22:00 Lurasidone HCl (Latuda) 120 mg DAILYWBKFT PO Last administered on 08/06/18 08:27; Start 08/06/18 at 08:00 Melatonin 3 mg HS PO Last administered on 08/06/18 20:15; Start 08/05/18 at 22:00 Olanzapine (ZyPREXA) 5 mg QODAY PO ; Start 08/07/18 at 09:00 Insulin Human Lispro (HumaLOG) 0-5 UNITS QIDACHS SQ ; Start 08/05/18 at 21:00; Stop 08/06/18 at 17:43; Status DC Dextrose (Dextrose 50%-Water Syringe) 12.5 gm PRN Q15MIN PRN IV SEE COMMENTS; Start 08/05/18 at 21:00 Ondansetron HCl (Zofran) 4 mg PRN Q4HRS PRN IV NAUSEA/VOMITING Last administered on 08/06/18 11:03; Start 08/05/18 at 21:00 Potassium Chloride/Dextrose/ Sod Cl 1,000 ml @ 100 mls/hr Q10H IV ; Start 08/05/18 at 21:00; Stop 08/05/18 at 22:03; Status DC Nicotine (Nicoderm Cq 21mg) 1 patch DAILY TD Last administered on 08/06/18 08:27; Start 08/05/18 at 22:00 Fentanyl Citrate (Fentanyl 2ml Vial) 25 mcg PRN Q3HRS PRN IV PAIN Last administered on 08/06/18 17:21; Start 08/05/18 at 21:00 Gabapentin (Neurontin) 300 mg BID PO Last administered on 08/06/18 20:16; Start 08/05/18 at 22:00 Potassium Chloride/Dextrose/ Sod Cl 1,000 ml @ 100 mls/hr Q10H IV Last administered on 08/06/18 18:00; Start 08/05/18 at 22:15 Oxycodone HCl (Roxicodone) 5 mg PRN Q6HRS PRN PO PAIN Last administered on 4/23/19at 20:15; Start 08/06/18 at 18:30 Active Scripts Active Reported Zyprexa (Olanzapine) 5 Mg Tablet 5 Mg PO QODAY Abilify Maintena (Aripiprazole) 400 Mg Suser.syr 400 Mg IM Kirkpatrick Carbonate 450 Mg Tablet.er 450 Mg PO BID Melatonin 3 Mg Tablet 3 Mg PO HS Gabapentin (Gabapentin) 100 Mg Capsule 300 Mg PO BID Metformin Hcl 500 Mg Tablet 500 Mg PO Latuda (Lurasidone Hcl) 80 Mg Tablet 120 Mg PO DAILY Trazodone Hcl 50 Mg Tablet 50 Mg PO HS I have reviewed the current psychotropics carefully including drug interactions. Risk benefit ratio favors no change other than as noted in my dictated progress note. Diagnosis: Problems: (1) Influenza A (2) Alcohol abuse (3) Depressed (4) Contusion (5) Suicidal ideation (6) Acute psychosis (7) Schizophrenia (8) Suicide attempt by substance overdose (9) Suicide attempt by method other than substance overdose PABLO BALDERAS MD Aug 06, 2018 22:36
[2018-08-07] VITALS (7 sets, daily range): BP systolic 99–140; BP diastolic 53–93
[2018-08-07] MEDS: POTASSIUM CL 20MEQ D5-0.45NACL 1,000 ML IV SCH ×2 (04:45→14:15)
[2018-08-07 08:00] LABS: HEMATOCRIT 43.7 % (39.0-53.0); HEMOGLOBIN 14.9 g/dL (13.0-17.5); RED BLOOD COUNT 5.07 x10^6/uL (4.30-5.70); RED CELL DISTRIBUTION WIDTH 13.8 % (11.5-14.5)
[2018-08-07] MEDS: LURASIDONE 40 MG TABLET. PO SCH (08:00)
[2018-08-07] MEDS: NICOTINE 21MG PATCH. TD SCH (08:11)
[2018-08-07] MEDS: LITHIUM CARBONATE ER 450 MG TABLET.ER PO SCH ×2 (08:11→21:06)
[2018-08-07] MEDS: GABAPENTIN 300 MG CAPSULE. PO SCH ×2 (08:11→21:06)
[2018-08-07 08:14] LABS: ACETAMIN < 2.0 mcg/mL (10-30)
[2018-08-07 08:17] LABS: ALBUMIN 3.4 g/dL (3.4-5.0); ALBUMIN/GLOBULIN RATIO 1.1 (1.0-1.7); CALCIUM 8.5 mg/dL (8.5-10.1); CREATININE 0.9 mg/dL (0.7-1.3); GFR 93.9; POTASSIUM 4.1 mmol/L (3.5-5.1); TOTAL BILIRUBIN 0.5 mg/dL (0.2-1.0); TOTAL PROTEIN 6.5 g/dL (6.4-8.2)
[2018-08-07] MEDS ORDERED: OLANZapine 5 MG TABLET PO SCH (09:00)
[2018-08-07] MEDS: oxyCODONE IR 5 MG TABLET PO PRN (14:03)
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
[2018-08-07] MEDS: MELATONIN 3 MG TABLET PO SCH (21:06)
--- NOTE | 2018-08-08 03:04 | PN ---
DATE: 08/07/2018 SUBJECTIVE: The patient is resting, slightly propped up in bed, in no apparent respiratory distress. He denied any complaint. Wounds in his both wrists have healed nicely with no redness, tenderness or discharge. His lab work has normalized completely. His lithium level is 0.6. Nursing staff did not voice any concern and stated that he had an uneventful night. The [facility] is working to place him in an inpatient Psychiatric unit and will be discharged as soon as bed becomes available. PHYSICAL EXAMINATION: GENERAL: When I examined him this afternoon, he looked well and was clearly in no apparent respiratory distress. No pallor, jaundice, cyanosis or thyromegaly. No jugular venous distension, no limb edema. VITAL SIGNS: His heart rate was 87, blood pressure was 127/79, temperature was 98.8, respiratory rate 12, and oxygen saturation was 93%. HEAD, EYES, EARS, NOSE AND THROAT: Normocephalic, atraumatic. NECK: Supple. HEART: Showed normal first and second heart sounds. No gallop, rub or murmur. CHEST: Clear to auscultation. No crepitation or rhonchi. ABDOMEN: Distended, soft, nontender. No guarding or rigidity. No organomegaly. All hernial orifices intact. Bowel sounds normal. NEUROLOGIC: He was awake, alert, and responding appropriately. Cranial nerves intact. He moves extremities without difficulty, ambulates without assistance or assistive device. His intake over the last 24 hours was 2250, output was 600. LABORATORY DATA: His lab work this morning showed that his white cell count was 7000, hemoglobin 15, hematocrit 44, MCV 86 and platelet count of 160,000. Serum sodium is 140, potassium 4.1, chloride 105, bicarbonate 28, anion gap of 7, BUN 5, creatinine is 0.9, estimated GFR was 94 mL per minute. His glucose 129, calcium was 8.5. Total bilirubin, AST, ALT, and alkaline phosphatase were normal. His total protein was 6.5, albumin was 3.4. Urinalysis essentially unremarkable and toxicology screen showed that his Tylenol level was only less than 2. ASSESSMENT AND PLAN: 1. Suicidal attempt by substance overdose. 2. Suicide attempt by method other than substance overdose. 3. Schizophrenia. 4. Type 2 diabetes. Plan is to discharge the patient once bed becomes available. YADIRA COSTA MD DR: Camilla JOB#: [id number] / [id number]
== END 2018-08-07 22:35 | DRG 908 ==
LOC: ER 15:11 → EEVIPCON 15:11 → ICU 18:10
PROVIDERS: ADMIT Internal Medicine; ATTEND Internal Medicine
PROC: 0XQHXZZ Repair Left Wrist Region, External Approach (ICD-10-PCS; principal; 2018-08-06)
PROC: 0XQGXZZ Repair Right Wrist Region, External Approach (ICD-10-PCS; 2018-08-06)
DX: T50.902A Poisoning by unspecified drugs, medicaments and biological substances, intentional self-harm, initial encounter (principal); R45.851 Suicidal ideations; E11.9 Type 2 diabetes mellitus without complications; F17.200 Nicotine dependence, unspecified, uncomplicated; F25.0 Schizoaffective disorder, bipolar type; F32.9 Major depressive disorder, single episode, unspecified; F41.9 Anxiety disorder, unspecified; S61.512A Laceration without foreign body of left wrist, initial encounter; S61.511A Laceration without foreign body of right wrist, initial encounter; X78.1XXA Intentional self-harm by knife, initial encounter; F10.10 Alcohol abuse, uncomplicated; Y90.9 Presence of alcohol in blood, level not specified; J10.1 Influenza due to other identified influenza virus with other respiratory manifestations; K59.00 Constipation, unspecified; Z83.3 Family history of diabetes mellitus; Z91.5 Personal history of self-harm; Z88.5 Allergy status to narcotic agent; Y93.89 Activity, other specified; Y92.89 Other specified places as the place of occurrence of the external cause; Y99.8 Other external cause status
CPT/HCPCS: 12004; 36415; 80053; 80178; 80307; 80329; 81001; 82947; 83605; 83735; 85025; 85027; 87641; 93005; 96361; 96374; G0480; J1815; J2405; J3010; 82003; 99285-25; J7030

== ENCOUNTER 2018-08-28 18:12 | Observation (INO) | payer OTHER ==
[~2018-08-28] VITALS: Ht 182.9 cm; Wt 105.7 kg
--- NOTE | 2018-08-28 18:14 | ED.ADGEN ---
Past History Past Medical History: Depression, Diabetes, Schizophrenia Past Surgical History: Other Smoking: Cigarettes Alcohol Use: Occasionally Drug Use: Marijuana Adult General Chief Complaint Chief Complaint "..I was taking my Indocin and Keflex... then shortly after wards... I started itching, got hives everywhere.. and wheezing..." HPI HPI Patient is a 38 year old male who presents with hx of hives, dyspnea and wheezing. Patient states is allergic reaction occurred within 30 minutes after taking Keflex and Indocin. Patient has audible wheeze. His entire body has hives. Does have some mild stridor and lipedema. Patient denies other recent medication usage. Patient normally follows with Dr. Pak. No recent travel. No specific ill contacts. Patient has not had problems previously with penicillin or Keflex. Patient does have a history of schizophrenic, bipolar, depression, and diabetes. Review of Systems Review of Systems Constitutional: Denies fever or chills [] Eyes: Denies change in visual acuity, redness, or eye pain [] HENT: Complains of nasal congestion and a" tight throat". Respiratory: Complains of wheezing Cardiovascular: No additional information not addressed in HPI [] GI: Denies abdominal pain, nausea, vomiting, bloody stools or diarrhea [] : Denies dysuria or hematuria [] Musculoskeletal: Denies back pain or joint pain []history of arthritic complaints Integument: Complains of hives and skin rash Neurologic: Denies headache, focal weakness or sensory changes [] Endocrine: Denies polyuria or polydipsia [] All other systems were reviewed and found to be within normal limits, except as documented in this note. Family History Family History Noncontributory Current Medications Current Medications Current Medications Medications (Trade) Dose Ordered Sig/Refugio Start Time Stop Time Status Last Admin Dose Admin Albuterol Sulfate (Ventolin Hfa Inhaler) 2 puff 1X ONCE 08/28/18 18:30 08/28/18 18:31 DC Albuterol/ Ipratropium (Duoneb) 3 ml Q4HRS W/A 08/28/18 22:00 Diphenhydramine HCl (Benadryl) 50 mg QID 08/28/18 21:00 Famotidine (Pepcid Vial) 20 mg BID 08/28/18 21:00 Lactated Ringer's 1,000 ml @ 200 mls/hr Q5H 08/28/18 21:00 Magnesium Hydroxide (Milk Of Magnesia) 2,400 mg BID 08/28/18 21:00 Methylprednisolone Sodium Succinate (SOLU-Medrol 40MG VIAL) 40 mg QID 08/28/18 21:00 Methylprednisolone Sodium Succinate (SOLU-Medrol 125MG VIAL) 125 mg 1X ONCE 08/28/18 18:30 08/28/18 18:43 DC 08/28/18 18:37 125 MG Ondansetron HCl (Zofran) 4 mg PRN Q4HRS PRN 08/28/18 18:45 08/29/18 18:44 Prednisone (Prednisone) 60 mg 1X ONCE 08/28/18 18:30 08/28/18 18:31 DC 08/28/18 18:36 60 MG Allergies Allergies Allergies Coded Allergies Type Severity Reaction Last Updated Verified codeine Allergy Intermediate 05/26/15 Yes Physical Exam Physical Exam Constitutional: in acute distress, non-toxic appearance. [] HENT: Normocephalic, atraumatic, bilateral external ears normal, oropharynx moist, no oral exudates, nose swollen turbinates and rhinorrhea. Lips are s wollen. Eyes: PERRLA, EOMI, conjunctiva normal, no discharge. [] Neck: Normal range of motion, no tenderness, supple, has mild stridor. [] Cardiovascular: Tachycardia Heart rate regular rhythm, no murmur [] Lungs & Thorax: Bilateral breath sounds equal with wheezing throughout on auscultation [] Abdomen: Bowel sounds normal, soft, no tenderness, no masses, no pulsatile masses. [] Skin: Hives and erythemic rash over entire body Back: No tenderness, no CVA tenderness. [] Extremities: No tenderness, no cyanosis, no clubbing, ROM intact, no edema. [] Neurologic: Alert and oriented X 3, normal motor function, normal sensory function, no focal deficits noted. [] Psychologic: Affect anxious, judgement normal, mood normal. [] Current Patient Data Vital Signs Vital Signs Date Time Temp Pulse Resp B/P (MAP) Pulse Ox O2 Delivery O2 Flow Rate FiO2 08/28/18 18:32 97 Room Air 08/28/18 18:30 97.8 114 18 Lab Results Laboratory Tests Test 5/15/19 18:26 White Blood Count 6.0 x10^3/uL (4.0-11.0) Red Blood Count 5.81 x10^6/uL (4.30-5.70) H Hemoglobin 16.9 g/dL (13.0-17.5) Hematocrit 49.7 % (39.0-53.0) Mean Corpuscular Volume 86 fL (79-100) Mean Corpuscular Hemoglobin 29 pg (25-35) Mean Corpuscular Hemoglobin Concent 34 g/dL (31-37) Red Cell Distribution Width 14.4 % (11.5-14.5) Platelet Count 192 x10^3/uL (140-400) Neutrophils (%) (Auto) 37 % (31-73) Lymphocytes (%) (Auto) 57 % (24-48) H Monocytes (%) (Auto) 4 % (0-9) Eosinophils (%) (Auto) 1 % (0-3) Basophils (%) (Auto) 1 % (0-3) Neutrophils # (Auto) 2.2 x10^3uL (1.8-7.7) Lymphocytes # (Auto) 3.4 x10^3/uL (1.0-4.8) Monocytes # (Auto) 0.3 x10^3/uL (0.0-1.1) Eosinophils # (Auto) 0.1 x10^3/uL (0.0-0.7) Basophils # (Auto) 0.0 x10^3/uL (0.0-0.2) Prothrombin Time 9.9 SEC (9.4-11.4) Prothrombin Time INR 1.0 (0.9-1.1) PTT 23 SEC (23-33) D-Dimer (Clemencia) 0.53 mg/L (0.00-0.50) H Sodium Level 138 mmol/L (136-145) Potassium Level 3.8 mmol/L (3.5-5.1) Chloride Level 102 mmol/L (98-107) Carbon Dioxide Level 22 mmol/L (21-32) Anion Gap 14 (6-14) Blood Urea Nitrogen 10 mg/dL (8-26) Creatinine 0.9 mg/dL (0.7-1.3) Estimated GFR (Cockcroft-Gault) 93.9 Glucose Level 214 mg/dL (70-99) H Calcium Level 8.8 mg/dL (8.5-10.1) Magnesium Level 1.9 mg/dL (1.8-2.4) Total Bilirubin 0.3 mg/dL (0.2-1.0) Direct Bilirubin 0.1 mg/dL (0.0-0.2) Aspartate Amino Transferase (AST) 43 U/L (15-37) H Alanine Aminotransferase (ALT) 103 U/L (16-63) H Alkaline Phosphatase 64 U/L (46-116) Creatine Kinase 31 U/L (39-308) L Creatine Kinase MB (Mass) < 0.5 ng/mL (0.0-3.6) Creatine Kinase MB Relative Index 1.6 % (0-4) Troponin I Quantitative < 0.017 ng/mL (0-0.055) Total Protein 6.8 g/dL (6.4-8.2) Albumin 3.6 g/dL (3.4-5.0) Lipase 89 U/L (73-393) EKG EKG My interpretation of EKG shows a sinus tachycardia at a 11 bpm. Some nonspecific anterior lateral contour changes. But no findings of acute STEMI with contrala teral changes.[] Radiology/Procedures Radiology/Procedures My interpretation of chest x-ray shows no specific consolidation. Lung volumes are limited. Borderline cardiac silhouette. No free air under diaphragm. No significant change from chest x-ray of 06-09-2015 except linear infiltrate noted on prior x-ray[] Course & Med Decision Making Course & Med Decision Making Pertinent Labs and Imaging studies reviewed. (See chart for details) Patient be admitted to Dr. Mills further evaluation and treatment. We will continue steroids, Benadryl, Pepcid and breathing treatments. Most likely will have continued allergic response until antibiotic Keflex or the Indocin is cleared. Noted at time of admission patient's stridor had cleared. Had much less wheezing and the generalized rash had somewhat cleared. [] Final Impression Final Impression 1. Allergic reaction- Keflex vs Indocin vs combination 2. Schizoaffective Disorder 3. Depression 4. Mild Elevation AST/ALT 43/103 5. DM 214.[] Dragon Disclaimer Dragon Disclaimer This electronic medical record was generated, in whole or in part, using a voice recognition dictation system. Discharge Summary Visit Information Final Diagnosis Problems Medical Problems: (1) Allergic reaction Status: Acute (2) Bronchitis Status: Acute Brief Hospital Course Allergies Allergies Coded Allergies Type Severity Reaction Last Updated Verified codeine Allergy Intermediate 05/26/15 Yes Vital Signs Vital Signs Date Time Temp Pulse Resp B/P (MAP) Pulse Ox O2 Delivery O2 Flow Rate FiO2 08/28/18 22:49 97.9 85 20 126/79 (95) 94 Room Air Lab Results Laboratory Tests Test 08/28/18 18:26 08/28/18 19:07 08/28/18 22:04 White Blood Count 6.0 x10^3/uL (4.0-11.0) Red Blood Count 5.81 x10^6/uL (4.30-5.70) Hemoglobin 16.9 g/dL (13.0-17.5) Hematocrit 49.7 % (39.0-53.0) Mean Corpuscular Volume 86 fL (79-100) Mean Corpuscular Hemoglobin 29 pg (25-35) Mean Corpuscular Hemoglobin Concent 34 g/dL (31-37) Red Cell Distribution Width 14.4 % (11.5-14.5) Platelet Count 192 x10^3/uL (140-400) Neutrophils (%) (Auto) 37 % (31-73) Lymphocytes (%) (Auto) 57 % (24-48) Monocytes (%) (Auto) 4 % (0-9) Eosinophils (%) (Auto) 1 % (0-3) Basophils (%) (Auto) 1 % (0-3) Neutrophils # (Auto) 2.2 x10^3uL (1.8-7.7) Lymphocytes # (Auto) 3.4 x10^3/uL (1.0-4.8) Monocytes # (Auto) 0.3 x10^3/uL (0.0-1.1) Eosinophils # (Auto) 0.1 x10^3/uL (0.0-0.7) Basophils # (Auto) 0.0 x10^3/uL (0.0-0.2) Prothrombin Time 9.9 SEC (9.4-11.4) Prothromb Time International Ratio 1.0 (0.9-1.1) Activated Partial Thromboplast Time 23 SEC (23-33) D-Dimer (Clemencia) 0.53 mg/L (0.00-0.50) Sodium Level 138 mmol/L (136-145) Potassium Level 3.8 mmol/L (3.5-5.1) Chloride Level 102 mmol/L (98-107) Carbon Dioxide Level 22 mmol/L (21-32) Anion Gap 14 (6-14) Blood Urea Nitrogen 10 mg/dL (8-26) Creatinine 0.9 mg/dL (0.7-1.3) Estimated GFR (Cockcroft-Gault) 93.9 Glucose Level 214 mg/dL (70-99) Calcium Level 8.8 mg/dL (8.5-10.1) Magnesium Level 1.9 mg/dL (1.8-2.4) Total Bilirubin 0.3 mg/dL (0.2-1.0) Direct Bilirubin 0.1 mg/dL (0.0-0.2) Aspartate Amino Transf (AST/SGOT) 43 U/L (15-37) Alanine Aminotransferase (ALT/SGPT) 103 U/L (16-63) Alkaline Phosphatase 64 U/L (46-116) Creatine Kinase 31 U/L (39-308) Creatine Kinase MB (Mass) < 0.5 ng/mL (0.0-3.6) Creatine Kinase MB Relative Index 1.6 % (0-4) Troponin I Quantitative < 0.017 ng/mL (0-0.055) Total Protein 6.8 g/dL (6.4-8.2) Albumin 3.6 g/dL (3.4-5.0) Lipase 89 U/L (73-393) Urine Collection Type Unknown Urine Color Yellow Urine Clarity Hazy Urine pH 5.0 Urine Specific [place] 1.015 Urine Protein Neg (NEG-TRACE) Urine Glucose (UA) 100 mg/dL (NEG) Urine Ketones (Stick) Neg mg/dL (NEG) Urine Blood Neg (NEG) Urine Nitrite Neg (NEG) Urine Bilirubin Neg (NEG) Urine Urobilinogen Dipstick 0.2 mg/dL (0.2 mg/dL) Urine Leukocyte Esterase Neg (NEG) Urine RBC 0 /HPF (0-2) Urine WBC 0 /HPF (0-4) Urine Squamous Epithelial Cells Occ /LPF Urine Bacteria 0 /HPF (0-FEW) Urine Opiates Screen Neg (NEG) Urine Methadone Screen Neg (NEG) Urine Barbiturates Neg (NEG) Urine Phencyclidine Screen Neg (NEG) Urine Amphetamine/Methamphetamine Neg (NEG) Urine Benzodiazepines Screen Neg (NEG) Urine Cocaine Screen Neg (NEG) Urine Cannabinoids Screen Neg (NEG) Urine Ethyl Alcohol Neg (NEG) Glucose (Fingerstick) 232 mg/dL (70-99) Brief Hospital Course Mr. Mehta is a 38 old male who presented with allergic reaction- possible Keflex or Indocin or combination . Admitted Dr. Mills. Discharge Information Condition at Discharge: Improved, Stable Disposition/Orders: D/C to Home Dischare Medications Current Medications Albuterol Sulfate (Ventolin Hfa Inhaler) 2 puff 1X ONCE INH ; Start 08/28/18 at 18:30; Stop 08/28/18 at 18:31; Status DC Prednisone (Prednisone) 60 mg 1X ONCE PO Last administered on 08/28/18at 18:36; Start 08/28/18 at 18:30; Stop 08/28/18 at 18:31; Status DC Lactated Ringer's 1,000 ml @ 1,000 mls/hr Q1H IV Last administered on 08/28/18at 18:36; Start 08/28/18 at 18:23; Stop 08/28/18 at 19:22; Status DC Albuterol/ Ipratropium (Duoneb) 3 ml 1X ONCE NEB Last administered on 08/28/18at 18:32; Start 08/28/18 at 18:30; Stop 08/28/18 at 18:43; Status DC Methylprednisolone Sodium Succinate (SOLU-Medrol 125MG VIAL) 125 mg 1X ONCE IV Last administered on 08/28/18 18:37; Start 08/28/18 at 18:30; Stop 08/28/18 at 18:43; Status DC Famotidine (Pepcid Vial) 20 mg 1X ONCE IVP Last administered on 08/28/18 18:37; Start 08/28/18 at 18:30; Stop 08/28/18 at 18:43; Status DC Diphenhydramine HCl (Benadryl) 50 mg 1X ONCE IV Last administered on 08/28/18at 18:37; Start 08/28/18 at 18:30; Stop 08/28/18 at 18:43; Status DC Magnesium Hydroxide (Milk Of Magnesia) 2,400 mg 1X ONCE PO Last administered on 08/28/18at 18:36; Start 08/28/18 at 18:30; Stop 08/28/18 at 18:43; Status DC Ondansetron HCl (Zofran) 4 mg PRN Q4HRS PRN IV NAUSEA/VOMITING; Start 08/28/18 at 18:45; Stop 08/29/18 at 18:44 Albuterol/ Ipratropium (Duoneb) 3 ml RTQID NEB ; Start 08/28/18 at 20:00; Stop 08/29/18 at 19:59; Status UNV Methylprednisolone Sodium Succinate (SOLU-Medrol 40MG VIAL) 40 mg QID IV Last administered on 08/28/18at 22:12; Start 08/28/18 at 21:00 Diphenhydramine HCl (Benadryl) 50 mg QID IV ; Start 08/28/18 at 21:00; Stop 08/28/18 at 21:00; Status DC Albuterol/ Ipratropium (Duoneb) 3 ml Q4HRS W/A NEB Last administered on at 21:49; Start 08/28/18 at 22:00 Famotidine (Pepcid Vial) 20 mg BID IVP Last administered on 08/28/18at 22:11; Start 08/28/18 at 21:00 Magnesium Hydroxide (Milk Of Magnesia) 2,400 mg BID PO Last administered on 08/28/18at 22:11; Start 08/28/18 at 21:00 Lactated Ringer's 1,000 ml @ 200 mls/hr Q5H IV ; Start 08/28/18 at 21:00 Gabapentin (Neurontin) 300 mg BID PO Last administered on 08/28/18at 22:12; Start 08/28/18 at 21:00 [place] Carbonate (Eskalith) 450 mg BID PO ; Start 08/28/18 at 21:00 Lurasidone HCl (Latuda) 120 mg DAILYWBKFT PO ; Start 08/29/18 at 08:00 Melatonin 3 mg QHS PO Last administered on 08/29/18at 00:44; Start 08/28/18 at 21:00 Olanzapine (ZyPREXA) 5 mg QODAY PO ; Start 08/30/18 at 09:00 Trazodone HCl (Desyrel) 50 mg QHS PO ; Start 08/28/18 at 21:00; Stop 08/28/18 at 21:00; Status DC Diphenhydramine HCl (Benadryl) 25 mg QID IV ; Start 08/29/18 at 09:00 Heparin Sodium (Porcine) (Heparin Sodium) 5,000 unit Q8HRS SQ Last administered on 08/28/18at 21:52; Start 08/28/18 at 22:00 Active Scripts Active Prednisone 50 Mg Tablet 50 Mg PO DAILY 5 Days Reported Levothyroxine Sodium 75 Mcg Tablet 75 Mcg PO DAILYAC Lisinopril 2.5 Mg Tablet 2.5 Mg PO DAILY Lipitor (Atorvastatin Calcium) 40 Mg Tablet 40 Mg PO QHS Lamictal (Lamotrigine) 100 Mg Tablet 100 Mg PO HS Januvia (Sitagliptin Phosphate) 50 Mg Tablet 50 Mg PO DAILY Zyprexa (Olanzapine) 5 Mg Tablet 5 Mg PO QODAY Abilify Maintena (Aripiprazole) 400 Mg Suser.syr 400 Mg IM Q3WK [place] Carbonate 450 Mg Tablet.er 450 Mg PO BID Melatonin 3 Mg Tablet 3 Mg PO HS Gabapentin (Gabapentin) 100 Mg Capsule 300 Mg PO BID Metformin Hcl 500 Mg Tablet 500 Mg PO BIDWMEALS Latuda (Lurasidone Hcl) 80 Mg Tablet 120 Mg PO DAILY Trazodone Hcl 50 Mg Tablet 50 Mg PO HS Dragon Disclaimer This chart was dictated in whole or in part using Voice Recognition software in a busy, high-work load, and often noisy Emergency Department environment. It may contain unintended and wholly unrecognized errors or omissions. AMAN WYNNE MD August 28, 2018 18:14
[2018-08-28] MEDS ORDERED: PRED50TA PO (18:16)
[2018-08-28] MEDS ORDERED: IV RINGERS SOLUTION,LACTATED 1,000 ML IV SCH ×2 (18:23→21:00)
[2018-08-28] MEDS ORDERED: FAMOTIDINE 20 MG/2 ML VIAL IVP ONE (18:30)
[2018-08-28] MEDS ORDERED: MAGNESIUM HYDROXIDE 2,400 MG/30 ML ORAL.SUSP. PO ONE (18:30)
[2018-08-28] MEDS ORDERED: IPRATRPIUM/ALBUTEROL 0.5/2.5MG 3 ML NEBU. NEB ONE (18:30)
[2018-08-28] MEDS ORDERED: methylPREDNISolone SOD SUCC PF 125 MG/2 ML VIAL. IV ONE (18:30)
[2018-08-28] MEDS ORDERED: diphenhydrAMINE 50 MG/ML VIAL IV ONE (18:30)
[2018-08-28] MEDS ORDERED: predniSONE 20 MG TABLET PO ONE (18:30)
[2018-08-28] MEDS ORDERED: ALBUTEROL SULFATE 8GM INHALER. INH ONE (18:30)
--- NOTE | 2018-08-28 18:34 | EKG ---
[address] [address] Test Date: 2018-08-28 Test Time: 18:22:33 Pat Name: ELEAZAR PERAZA Department: Room: Gender: M Loop Tender: VENTURA : 1980 Requested By: AMAN WYNNE Order Number: [id number] Reading MD: Rodger Martins Measurements Intervals [place] Rate: 111 P: 30 MS: 144 QRS: 52 QRSD: 84 T: 15 QT: 316 QTc: 433 Interpretive Statements SINUS TACHYCARDIA Electronically Signed On 09-20-2018 12:09:35 CDT by Rodger Martins
[2018-08-28 18:38] LABS: BASO % 1 % (0-3); EOS # 0.1 x10^3/uL (0.0-0.7); EOS % 1 % (0-3); HEMATOCRIT 49.7 % (39.0-53.0); HEMOGLOBIN 16.9 g/dL (13.0-17.5); LYMPH # 3.4 x10^3/uL (1.0-4.8); LYMPH % 57 % (24-48); MEAN CORPUSCULAR HEMOGLOBIN 29 pg (25-35); MEAN CORPUSCULAR HGB CONC 34 g/dL (31-37); MEAN CORPUSCULAR VOLUME 86 fL (79-100); MONO # 0.3 x10^3/uL (0.0-1.1); MONO % 4 % (0-9); NEUT # 2.2 x10^3uL (1.8-7.7); NEUT % 37 % (31-73); PLATELET COUNT 192 x10^3/uL (140-400); RED BLOOD COUNT 5.81 x10^6/uL (4.30-5.70); RED CELL DISTRIBUTION WIDTH 14.4 % (11.5-14.5)
[2018-08-28] MEDS ORDERED: ONDANSETRON PF 4 MG/2 ML VIAL. IV PRN (18:45)
[2018-08-28 19:15] LABS: ALBUMIN 3.6 g/dL (3.4-5.0); ALK PHOS 64 U/L (46-116); ALT (SGPT) 103 U/L (16-63); ANION GAP 14 (6-14); AST (SGOT) 43 U/L (15-37); BLOOD UREA NITROGEN 10 mg/dL (8-26); CALCIUM 8.8 mg/dL (8.5-10.1); CARBON DIOXIDE 22 mmol/L (21-32); CHLORIDE 102 mmol/L (98-107); CREATININE 0.9 mg/dL (0.7-1.3); DIRECT BILIRUBIN 0.1 mg/dL (0.0-0.2); GFR 93.9; GLUCOSE 214 mg/dL (70-99); LIPASE 89 U/L (73-393); MAGNESIUM 1.9 mg/dL (1.8-2.4); POTASSIUM 3.8 mmol/L (3.5-5.1); SODIUM 138 mmol/L (136-145); TOTAL BILIRUBIN 0.3 mg/dL (0.2-1.0); TOTAL PROTEIN 6.8 g/dL (6.4-8.2)
[2018-08-28] MEDS ORDERED: IPRATRPIUM/ALBUTEROL 0.5/2.5MG 3 ML NEBU. NEB SCH (20:00)
[2018-08-28 20:09] LABS: BACTERIA,URINE 0 /HPF (0-FEW); BILIRUBIN,URINE NEG (NEG); CLARITY,URINE HAZY; COLOR,URINE YELLOW; GLUCOSE,URINE 100 mg/dL (NEG); NITRITE,URINE NEG (NEG); RBC,URINE 0 /HPF (0-2); SQUAMOUS EPITHELIAL CELL,UR OCC /LPF; UROBILINOGEN,URINE 0.2 mg/dL (0.2 mg/dL); WBC,URINE 0 /HPF (0-4)
[2018-08-28 20:13] VITALS: BP 147/91
[2018-08-28 20:28] LABS: AMPHETAMINE/METHAMPHETAMINE NEG (NEG); BARBITURATES NEG (NEG); BENZODIAZEPINES NEG (NEG); CANNABINOIDS NEG (NEG); COCAINE NEG (NEG); METHADONE NEG (NEG); OPIATES NEG (NEG); PHENCYCLIDINE NEG (NEG)
--- NOTE | 2018-08-28 20:30 | NUR ---
PATIENT ARRIVED TO UNIT IN STABLE CONDITION WITH PARENTS AT BEDSIDE. HEART MONITOR PLACED AND INITIAL SET OF VITAL SIGNS OBTAINED. PATIENT COMPLETELY ALERT AND ORIENTED, BUT HAD MOMENTS OF FORGETFULNESS/DROWSINESS. ABLE TO ANSWER ALL NEURO ASSESSMENT QUESTIONS CORRECTLY. DOC RESTARTED PATIENT HOME MEDS PRIOR TO RN RECONCILING MED REC. SOME MEDS ON HOME LIST HAVE BEEN DISCONTINUED SINCE PATIENT'S LAST ADMISSION. THIS RN WILL NOTIFY DAY SHIFT RN PRIOR TO ADMINISTRATION OF AM MEDS. PATIENT CURRENTLY IN STABLE CONDITION AND VSS. WILL CONTINUE TO MONITOR PATIENT.
[2018-08-28] MEDS ORDERED: SITA50TA PO (20:37)
[2018-08-28] MEDS ORDERED: LAMO100T5 PO (20:37)
[2018-08-28] MEDS ORDERED: ATOR40TA PO (20:42)
[2018-08-28] MEDS ORDERED: LEVO75TA5 PO (20:42)
[2018-08-28] MEDS ORDERED: LISI2.5T PO (20:42)
[2018-08-28] MEDS ORDERED: traZODone 50 MG TABLET. PO SCH (21:00)
[2018-08-28] MEDS: LITHIUM CARBONATE ER 450 MG TABLET.ER PO SCH (21:00)
[2018-08-28] MEDS: MELATONIN 3 MG TABLET PO SCH (21:00)
[2018-08-28] MEDS ORDERED: diphenhydrAMINE 50 MG/ML VIAL IV SCH (21:00)
[2018-08-28] MEDS: IPRATRPIUM/ALBUTEROL 0.5/2.5MG 3 ML NEBU. NEB SCH (21:49)
[2018-08-28] MEDS: HEPARIN for SUB-Q USE 5,000 UNIT/ML VIAL. SQ SCH (21:52)
[2018-08-28] MEDS: FAMOTIDINE 20 MG/2 ML VIAL IVP SCH (22:11)
[2018-08-28] MEDS: MAGNESIUM HYDROXIDE 2,400 MG/30 ML ORAL.SUSP. PO SCH (22:11)
[2018-08-28] MEDS: GABAPENTIN 100 MG CAPSULE. PO SCH (22:12)
[2018-08-28] MEDS: methylPREDNISolone SOD SUCC PF 40 MG/ML VIAL. IV SCH (22:12)
[2018-08-28 22:49] VITALS: BP 126/79
--- NOTE | 2018-08-28 23:13 | HP ---
ADMIT DATE: 08/28/2018 HISTORY OF PRESENT ILLNESS: A 38-year-old male in usual state of health, has a long history of some psychiatric problems, apparently recently been treated for gout and an infection of his toe. He has a history of schizophrenia. The patient apparently had been started on cephalexin, indomethacin and allopurinol, which apparently he has had before and had an allergic reaction where he broke out in a bright red rash. According to the family, he had marked shortness of breath and wheezing and as a result of that, he was brought into the Emergency Room where he received emergency treatment including IV Benadryl, Solu-Medrol, Pepcid. The patient also received breathing treatments and was stabilized and then transferred up here for admission. PAST MEDICAL HISTORY: Apparently, he has a history of schizophrenia and oral medications and depression, has a sleep disorder. Outside of that, he has had some problems with his teeth and gluteal cyst removal. SOCIAL HISTORY: No history of smoking is listed. He denies alcohol or illicit drug use. ALLERGIES: He had an adverse drug reaction, nausea to CODEINE. MEDICATIONS: Home medications include gabapentin 300 b.i.d., trazodone 50 at bedtime. He would like to stop Abilify 400 mg IM, held, Latuda 120 mg daily, Zyprexa 5 mg every other day, lithium 450 mg b.i.d., prednisone 50 mg daily, metformin 500 mg for type 2 diabetes, melatonin 3 mg. REVIEW OF SYSTEMS: The patient is a full code. Most of the history is obtained from his parents. The patient was sedated from the Benadryl received in the Emergency Room, but he seemed to shake his head. He denied any chest pain, shortness of breath at the present time. PHYSICAL EXAMINATION: GENERAL: This is a very well-developed, well-nourished male, now sedated. VITAL SIGNS: Blood pressure 147/90, respiratory rate 18, pulse 114 down to 84, oxygen saturation 95-98%, weight approximately is 106 kilos. Otherwise, the patient was arousable. SKIN: Warm and dry. Slight flushing, but apparently from the family markedly improved. HEENT: The eyes were PERRLA. LUNGS: Diminished, but clear. CARDIOVASCULAR: Regular sinus rhythm. ABDOMEN: Soft, protuberant, nontender. EXTREMITIES: No clubbing, cyanosis or edema. NEUROLOGIC: The patient is at baseline, but of course sedated as a result of the allergic reaction and the medications provided to him in the Emergency Room. LABORATORY DATA AND IMAGING STUDIES: The blood sugar shot up to 214, elevated liver enzymes of AST, ALT, no previous records to demonstrate if he has had this mild elevation of his liver enzymes. He did have an elevated D-dimer, probably from the patient's labs show slight elevation of D-dimer of 0.53 as noted. Urine drug screen was negative for all abnormal drugs. His UA was unremarkable. Chemistries as noted earlier and his white count were 6, hemoglobin 16.9 and ____. Lymphs were elevated at 57. Chest x-ray report is pending. The patient will be monitored carefully. IMPRESSION AND PLAN: Anaphylactic reaction to possibly either indomethacin, cephalexin or allopurinol. The patient will be monitored carefully. Previous history of schizophrenia, depression, but in any case will continue to be monitored carefully, make further evaluation on him as indicated. Monitoring vital signs. May need to hold some of his antipsychotic medication since he is already associated with that. Monitor his blood sugars. We will make further evaluation and discontinue the trazodone per family's request. Obviously, he does not need that for sleep as he is quite sedated at the present time from the IV Benadryl. Medical care will be followed along with by Dr. Hong in the morning. ALEX SETHI MD DR: JOSH/simone JOB#: [id number] / [id number]
--- NOTE | 2018-08-28 23:45 | RAD ---
AP portable chest radiograph 08/28/2018 Clinical History: Allergic reaction to Keflex. An AP erect portable digital radiograph of the chest was obtained. Comparison study is dated 09/12/2016. The cardiac and mediastinal silhouettes are within normal limits in size and configuration. No acute pulmonary infiltrate is seen. No pleural effusion or pneumothorax is noted. The osseous structures are grossly intact. Impression: No acute abnormality is seen. Electronically signed by: Raudel Craig MD (08/28/2018 11:42 PM) [facility]
[2018-08-29] MEDS: MELATONIN 3 MG TABLET PO SCH (00:44)
[2018-08-29] MEDS: IPRATRPIUM/ALBUTEROL 0.5/2.5MG 3 ML NEBU. NEB SCH ×2 (05:21→09:45)
[2018-08-29 05:47] VITALS: BP 117/71
[2018-08-29] MEDS: HEPARIN for SUB-Q USE 5,000 UNIT/ML VIAL. SQ SCH (06:05)
[2018-08-29 06:07] LABS: CALCIUM 8.7 mg/dL (8.5-10.1); GFR 83.2; POTASSIUM 4.7 mmol/L (3.5-5.1)
[2018-08-29 06:16] LABS: BASO % 0 % (0-3); EOS % 0 % (0-3); HEMATOCRIT 44.6 % (39.0-53.0); HEMOGLOBIN 15.3 g/dL (13.0-17.5); LYMPH # 0.9 x10^3/uL (1.0-4.8); LYMPH % 13 % (24-48); MEAN CORPUSCULAR HEMOGLOBIN 29 pg (25-35); MEAN CORPUSCULAR HGB CONC 34 g/dL (31-37); MEAN CORPUSCULAR VOLUME 86 fL (79-100); MONO # 0.1 x10^3/uL (0.0-1.1); MONO % 1 % (0-9); NEUT # 5.9 x10^3uL (1.8-7.7); NEUT % 85 % (31-73); PLATELET COUNT 161 x10^3/uL (140-400); RED BLOOD COUNT 5.19 x10^6/uL (4.30-5.70); RED CELL DISTRIBUTION WIDTH 14.2 % (11.5-14.5)
[2018-08-29] MEDS: LITHIUM CARBONATE ER 450 MG TABLET.ER PO SCH (07:36)
[2018-08-29] MEDS ORDERED: LURASIDONE 40 MG TABLET. PO SCH (08:00)
[2018-08-29] MEDS: GABAPENTIN 100 MG CAPSULE. PO SCH (08:06)
[2018-08-29] MEDS: MAGNESIUM HYDROXIDE 2,400 MG/30 ML ORAL.SUSP. PO SCH (08:06)
[2018-08-29] MEDS: FAMOTIDINE 20 MG/2 ML VIAL IVP SCH (08:06)
[2018-08-29] MEDS: methylPREDNISolone SOD SUCC PF 40 MG/ML VIAL. IV SCH ×2 (08:07→13:00)
[2018-08-29] MEDS: diphenhydrAMINE 50 MG/ML VIAL IV SCH ×2 (08:07→13:00)
[2018-08-29 08:31] LABS: % ATYL 1 % (0-0); % BANDS 1 % (0-9); % BASOS 1 % (0-3); % EOS 1 % (0-5); % LYMPHS 10 % (24-48); % SEGS 86 % (35-66); PLT ESTIMATE ADEQUATE (ADEQUATE)
[2018-08-29] MEDS ORDERED: NICOTINE 21MG PATCH. TD SCH (09:00)
[2018-08-29 10:51] VITALS: BP 117/63
--- NOTE | 2018-08-29 14:33 | NUR ---
Discharge Note: ELEAZAR PERAZA Discharge instructions and discharge home medications reviewed with Patient and a copy given. All questions have been answered and understanding verbalized. The following instructions and handouts were given: medrol dose pack, anaphylactic reaction IV in RFA, tip in tact, pressure dressing applied. Patient discharged to home with mother and father present at discharge. Educated patient to follow up with PCP with in 7-10 days. Patient and family verbally verified understanding of education recieved. Patient is alert and oriented x 4, indpendently ambulated off unit accompanied by Mother and father in [place].
--- NOTE | 2018-08-29 20:50 | DS ---
DATE OF DISCHARGE: 08/29/2018 HISTORY OF PRESENT ILLNESS: The patient is a 38-year-old male patient, who apparently was given the prescription for what seemed to be an acute gouty arthritis, left big toe and was started on Indocin and Keflex and shortly after taking that he started itching, had hives everywhere and was started wheezing as well as shortness of breath that started about 30 minutes after he took his Keflex and Indocin. By the time he arrived to the Emergency Room, he apparently has an audible wheeze and his entire body has hives. He does have mild stridor. He denied any other recent medication change. He follows with Pasha at the clinic. He apparently does not have any problem with penicillin or Keflex. He was evaluated in the Emergency Room. He was apparently tachycardic, but not hypoxic. He was basically treated with the steroids and received 125 mg of Solu-Medrol, nebulized treatment as well as diphenhydramine and famotidine and was admitted for further evaluation and treatment. PHYSICAL EXAMINATION: GENERAL: When I saw him today, he was resting slightly propped up in bed, in no apparent respiratory distress. There was no pallor, jaundice or cyanosis. No lymphadenopathy, no thyromegaly. No jugular venous distension. No lower limb edema. VITAL SIGNS: Her heart rate is 111, blood pressure was 117/63, temperature was 97.8, respiratory rate of 20, and oxygen saturation was 94% on room air. HEAD, EYES, EARS, NOSE AND THROAT: Normocephalic, atraumatic. NECK: Supple. HEART: Showed normal first and second sounds. No gallop, rub or murmur. CHEST: Clear to auscultation. No crepitation or rhonchi. ABDOMEN: Distended, soft, nontender. NEUROLOGIC: He is awake, alert, responding appropriately. All cranial nerves intact. EXTREMITIES: He moves extremities without difficulty, ambulates without assistance or assistive devices. He has mild swelling and discoloration of his left big toe. LABORATORY DATA: His lab work this morning showed a white cell count of 7000, hemoglobin 15, hematocrit 44.6, MCV 86, and platelet count of 161,000 with the normal manual differential. His chemistry showed that his serum sodium was 138, potassium 4.7, chloride 103, bicarbonate 24, anion gap of 11, BUN 11, creatinine 1, estimated GFR was 83 mL per minute, his glucose was 300 and calcium was 8.7. His prothrombin time was 9.9, INR of 1, aPTT was 23 and D-dimer was 0.53. Toxic screen was basically essentially negative. His chest x-ray showed the cardiac and mediastinal silhouette are within normal limits in size and configuration. No acute pulmonary infiltrate is seen. No pleural effusion or pneumothorax noted. The osseous structures are grossly intact. The patient was treated with them, was continued on his other medications and then continue with the diphenhydramine 25 mg 4 times a day, Solu-Medrol 40 mg IV 4 times a day as well as Pepcid 20 mg twice a day. All his hives has completely resolved. He has no more wheezing. He is maintaining his oxygen saturation at 94% on room air. DISCHARGE MEDICATIONS: The patient was discharged home to continue on his home medications that included atorvastatin, calcium 40 mg at bedtime, lisinopril 2.5 mg daily, gabapentin 300 mg twice a day, lamotrigine 100 mg p.o. at bedtime, trazodone 50 mg at bedtime, aripiprazole or Abilify 400 mg intramuscular every 3 weeks, olanzapine 5 mg every other day and metformin 500 mg twice a day with meals, sitagliptin phosphate or Januvia 50 mg daily, levothyroxine sodium 75 mcg once a day. FINAL DISCHARGE DIAGNOSES: Severe allergic reaction, probably Keflex and indomethacin. Other medical problems include schizophrenia, type 2 diabetes mellitus, on oral hypoglycemic agent and depression and schizophrenia. YADIRA COSTA MD DR: JERE/simone JOB#: [id number] / [id number]
[2018-08-30] MEDS ORDERED: OLANZapine 5 MG TABLET PO SCH (09:00)
== END 2018-08-29 14:38 | disposition home or self-care (01) ==
LOC: ER 18:12 → 1 SOUTH 18:30 → INTOOBSV 18:30 → ER 19:35
PROVIDERS: ADMIT Family Medicine; ATTEND Internal Medicine
DX: T78.2XXA Anaphylactic shock, unspecified, initial encounter (principal); E11.9 Type 2 diabetes mellitus without complications; J20.9 Acute bronchitis, unspecified; F17.210 Nicotine dependence, cigarettes, uncomplicated; F20.9 Schizophrenia, unspecified; F31.9 Bipolar disorder, unspecified; M10.9 Gout, unspecified; Z88.8 Allergy status to other drugs, medicaments and biological substances; Y92.89 Other specified places as the place of occurrence of the external cause
CPT/HCPCS: 36415; 71045; 80048; 80076; 80307; 81001; 82553; 82947; 83690; 83735; 84443; 84484; 85007; 85025; 85379; 85610; 85730; 93005; 94640; 96372; 96374; 96375; 96376; 99284; 99406; G0378; J1200; J1644; J2920; J2930; J3490; J7120; J7512; J7613; J7620; 96361; G0379; 99285-25

== ENCOUNTER → 2018-09-16 | Outpatient (CLI) | payer OTHER ==
[2018-08-29 10:51] VITALS: BP 117/63
[~2018-09-16] MED LIST changes: +ATOR40TA PO; +LAMO100T5 PO; +LEVO75TA5 PO; +LISI2.5T PO; +PRED50TA PO; +SITA50TA PO
--- NOTE | 2018-09-16 17:36 | RAD ---
Indications: Right foot and ankle pain. 2 view right ankle study: No acute fracture or dislocation or lytic process is evident. The mortise ankle joint is intact. 2 view Right foot study: No acute fracture or dislocation or lytic process is seen. No periosteal reaction is evident. 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 IMPRESSION: No acute fracture. Electronically signed by: Shaw Chavez MD (09/16/2018 5:33 PM) [id number]
== END | disposition home or self-care (01) ==
LOC: PMG 15:40
PROVIDERS: ATTEND Registered Nurse
DX: M19.071 Primary osteoarthritis, right ankle and foot (principal)
CPT/HCPCS: 73600; 73620

== ENCOUNTER 2018-12-20 15:23 | Emergency (ER) | payer OTHER ==
[~2018-12-20] VITALS: Ht 182.9 cm; Wt 106.8 kg
[~2018-12-20 15:23] MED LIST changes: -MELA3TAB2 PO; +MELA3TAB56 PO
[2018-12-20] MEDS ORDERED: CIPR500T PO (15:58)
[2018-12-20] MEDS ORDERED: METR500T PO (15:58)
--- NOTE | 2018-12-20 16:17 | PHYS DOC ---
Past History Past Medical History: Depression, Diabetes, Schizophrenia Past Surgical History: Other Smoking: Cigarettes Alcohol Use: Occasionally Drug Use: Marijuana Adult General Chief Complaint Chief Complaint: RECTAL BLEED HPI HPI Patient is a 38-year-old male who is presenting with rectal bleeding he had receptive anal intercourse last night. This is not uncommon issue for him he tells me. He said he is not worried about an STD at this time he really just wanted to come in to get checked out . He had a bowel movement at [facility] and there was blood in the toilet bowl when he went to have a bowel movement he did have mild pain but really no pain at this time no abdominal pain no vomiting no fever. Review of Systems Review of Systems Constitutional: Denies fever or chills [] Eyes: Denies change in visual acuity, redness, or eye pain [] HENT: Denies nasal congestion or sore throat [] Respiratory: Denies cough or shortness of breath [] Cardiovascular: No additional information not addressed in HPI [] Neurologic: Denies headache, focal weakness or sensory changes [] Endocrine: Denies polyuria or polydipsia [] All other systems were reviewed and found to be within normal limits, except as documented in this note. Allergies Allergies Allergies Coded Allergies Type Severity Reaction Last Updated Verified codeine Allergy Intermediate 05/26/15 Yes Physical Exam Physical Exam Constitutional: Well developed, well nourished, no acute distress, non-toxic appearance. [] HENT: Normocephalic, atraumatic, bilateral external ears normal, oropharynx moist, no oral exudates, nose normal. [] Eyes: PERRLA, EOMI, conjunctiva normal, no discharge. [] Neck: Normal range of motion, no tenderness, supple, no stridor. [] Abdomen: Bowel sounds normal, soft, no tenderness, no masses, no pulsatile masses. [] RECTAL: visualzied anal exam showed no obvious anal fissure hemorrhoid or active bleeding or perianal edema. Skin: Warm, dry, no erythema, no rash. [] Back: No tenderness, no CVA tenderness. [] Extremities: No tenderness, no cyanosis, no clubbing, ROM intact, no edema. [] Neurologic: Alert and oriented X 3, normal motor function, normal sensory function, no focal deficits noted. [] Psychologic: odd affect. see nurses note for vitals EKG EKG [] Radiology/Procedures Radiology/Procedures [] Course & Med Decision Making Course & Med Decision Making Pertinent Labs and Imaging studies reviewed. (See chart for details) []Reviewed patient's allergy list he had an alcohol allergic reaction to either Keflex or Indocin a few months back and so we will use Cipro and Flagyl instead for prophylaxis for proctitis type symptomatology. I talked with him about HIV exposure prophylaxis he really was not interested in that at this time. I did encourage wrist reduction behaviors as best as possible. at this point abdomen benign, doubt full thickness rectal tear, probably superficial trauma proximatlly. recommended stool softener rectal rest, use protection when symptoms resolve completely Dragon Disclaimer Dragon Disclaimer This electronic medical record was generated, in whole or in part, using a voice recognition dictation system. Departure Departure: Impression: Primary Impression: Proctitis Disposition: 01 HOME, SELF-CARE Condition: STABLE Patient Instructions: Proctitis Scripts Metronidazole (FLAGYL) 500 Mg Tablet 1 TAB PO BID for rectal pain, #14 TAB Prov: NAE STEARNS MD 12/20/18 Ciprofloxacin Hcl (CIPROFLOXACIN HCL) 500 Mg Tablet 1 TAB PO BID for rectal pain, #14 TAB Prov: NAE STEARNS MD 12/20/18 NAE STEARNS MD Dec 20, 2018 16:17
== END 2018-12-20 17:00 | disposition home or self-care (01) ==
LOC: ER 15:23
DX: K62.89 Other specified diseases of anus and rectum (principal); E11.9 Type 2 diabetes mellitus without complications; E20.9 Hypoparathyroidism, unspecified; F17.210 Nicotine dependence, cigarettes, uncomplicated; Z88.5 Allergy status to narcotic agent
CPT/HCPCS: 99283

== ENCOUNTER 2019-11-13 18:54 | Emergency (ER) | payer OTHER ==
[~2019-11-13] VITALS: Ht 182.9 cm; Wt 106.8 kg
[~2019-11-13 18:54] MED LIST changes: +CIPR500T PO; +MELA3TAB4 PO; -MELA3TAB56 PO; +METR500T PO
--- NOTE | 2019-11-13 19:27 | RAD ---
Exam: CT head INDICATION: Headache TECHNIQUE: Sequential axial images through the head were obtained without the administration of IV contrast. Comparisons: None FINDINGS: No focal parenchymal lesion or hemorrhage is identified. There is no midline shift or sulcal effacement. No acute vascular territory infarction is identified. Erwin-white distinction is preserved. The ventricular system is within normal limits without compression hydrocephalus. The basal cisterns are well maintained. The visualized portions of the paranasal sinuses and mastoid air cells are well-pneumatized. No acute fractures. IMPRESSION: No acute intracranial abnormality. Exposure: One or more of the following in the visualized dose reduction techniques were utilized for this examination: 1. Automated exposure control 2. Adjustment of the MA and/or KV according to patient size Use of iterative of reconstructive technique Electronically signed by: Luis Drummond MD (11/13/2019 7:24 PM) [id number]
--- NOTE | 2019-11-13 20:11 | PHYS DOC ---
Past History Past Medical History: Asthma, Depression, Diabetes, Hypertension, Schizophrenia Past Surgical History: No Surgical History Smoking: Cigarettes Alcohol Use: Occasionally Drug Use: None General Adult EDM: Chief Complaint: HEADACHE HPI: HPI: Patient is a 39-year-old male who presents with a left occipital headache that happened this evening and lasted 10 minutes pain was described as stabbing and 7-10 of severity, patient denies any current pain. No focal neurological deficits, no visual changes no dizziness no nausea vomiting. Patient had a similar episode a week and a half ago. Review of Systems: Review of Systems: Constitutional: Denies fever or chills Eyes: Denies change in visual acuity HENT: Denies nasal congestion or sore throat Respiratory: Denies cough or shortness of breath Cardiovascular: Denies chest pain or edema GI: Denies abdominal pain, nausea, vomiting, bloody stools or diarrhea : Denies dysuria Musculoskeletal: Denies back pain or joint pain Integument: Denies rash Neurologic: Complains of transient headache but no focal weakness or sensory deficits Endocrine: Denies polyuria or polydipsia Lymphatic: Denies swollen glands Psychiatric: Denies depression or anxiety Heart Score: Risk Factors: Risk Factors: DM, Current or recent (<one month) smoker, HTN, HLP, family history of CAD, obesity. Risk Scores: Score 0 - 3: 2.5% MACE over next 6 weeks - Discharge Home Score 4 - 6: 20.3% MACE over next 6 weeks - Admit for Clinical Observation Score 7 - 10: 72.7% MACE over next 6 weeks - Early Invasive Strategies Allergies: Allergies: Allergies Coded Allergies Type Severity Reaction Last Updated Verified codeine Allergy Intermediate 05/26/15 Yes Physical Exam: PE: Constitutional: Well developed, well nourished, no acute distress, non-toxic appearance. HENT: No trismus, external ears normal Eyes: Conjunctiva clear, EOMI Neck: Normal range of motion, no tenderness, supple, no stridor. 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 Psychologic: Affect normal, judgement normal, mood normal. Current Patient Data: Vital Signs: Vital Signs Date Time Temp Pulse Resp B/P (MAP) Pulse Ox O2 Delivery O2 Flow Rate FiO2 11/13/19 19:09 98.1 104 14 164/94 (117) 97 Room Air EKG: EKG: [] Radiology/Procedures: Radiology/Procedures: [] Course & Med Decision Making: Course & Med Decision Making Pertinent Labs and Imaging studies reviewed. (See chart for details) [] Patient with very atypical transient headaches that lasted only 10 minutes one episode today and one episode 2 weeks ago. Normal neurological exam no family history of subarachnoid hemorrhage. Doubt intracranial hemorrhage. CT is negative. CT was done to new episode of headaches. Dragon Disclaimer: [employer] Disclaimer: This electronic medical record was generated, in whole or in part, using a voice recognition dictation system. Departure Departure: Impression: Primary Impression: Headache Disposition: HOME/RESIDENCE PRIOR TO ADM Condition: STABLE Referrals: JOSE MOYER (PCP) 2 to 3 days Patient Instructions: General Headache Without Cause Additional Instructions: EMERGENCY DEPARTMENT GENERAL DISCHARGE INSTRUCTIONS THANK YOU for coming to the Emergency Department (ED) today and trusting us with your care. We trust that you had a positive experience in our Emergency Department. YOUR FOLLOW UP INSTRUCTIONS ARE FOLLOWS: Do you have a private doctor? If you do not have a private doctor, please ask for a resource list of physicians or clinics that may be able to assist you with follow up care. The Emergency Physician has interpreted your x-rays. The X-ray specialist will also review them. If there is a change in the findings you will be notified in 48 hours when at all possible. A lab test or lab culture may have been done, your results will be reviewed and you will be notified if you need a change in treatment. ADDITIONAL INSTRUCTIONS AND INFORMATION Your care today has been supervised by a physician who is specially trained in emergency care. Many problems require more than one evaluation for a complete diagnosis and treatment. We recommend that you schedule your follow up appointment as recommended to ensure complete treatment of your illness or injury. If you are unable to obtain follow up care and continue to have a problem, or if your condition worsens we recommend that you return to the ED. We are not able to safely determine your condition over the phone nor are we able to give sound medical advice over the phone. For these safety reasons, if you call for medical advice we will ask you to come to the ED for further evaluation If you have any questions regarding these discharge instructions please call the ED at . SAFETY INFORMATION In the interest of safety, wellness, and injury prevention; we encourage you to wear your seatbelt, if you smoke; quit smoking, and we encourage your family to use protective helmet for bicycling and other sporting events that present an increased risk for head injury. IF YOUR SYMPTOMS WORSEN OR NEW SYMPTOMS DEVELOP, OR YOU HAVE CONCERNS ABOUT YOUR CONDITION; OR IF YOUR CONDITION WORSENS WHILE YOU ARE WAITING FOR YOUR FOLLOW UP APPOINTMENT; EITHER CONTACT YOUR PRIMARY CARE DOCTOR, THE PHYSICIAN WHOSE NAME AND NUMBER YOU WERE GIVEN, OR RETURN TO THE ED IMMEDIATELY. Justification of Admission: Justification of Admission: Justification of Admission Dx: N/A LINDA TOMPKINS MD Nov 13, 2019 20:11
[2019-11-13 20:31] VITALS: BP 150/64
== END 2019-11-13 20:30 | disposition home or self-care (01) ==
LOC: ER 18:54
DX: R51 Headache (principal); J45.909 Unspecified asthma, uncomplicated; E11.9 Type 2 diabetes mellitus without complications; I10 Essential (primary) hypertension; F20.9 Schizophrenia, unspecified; F17.210 Nicotine dependence, cigarettes, uncomplicated; Z88.5 Allergy status to narcotic agent
CPT/HCPCS: 70450; 99284-25

== ENCOUNTER 2020-02-26 01:43 | Emergency (ER) | payer OTHER ==
[~2020-02-26] VITALS: Ht 182.9 cm; Wt 106.8 kg
[2020-02-26 02:36] LABS: BASO # 0.1 x10^3/uL (0.0-0.2); BASO % 1 % (0-3); EOS # 0.3 x10^3/uL (0.0-0.7); EOS % 3 % (0-3); HEMOGLOBIN 15.7 g/dL (13.0-17.5); LYMPH # 3.3 x10^3/uL (1.0-4.8); LYMPH % 38 % (24-48); MEAN CORPUSCULAR HEMOGLOBIN 30 pg (25-35); MEAN CORPUSCULAR HGB CONC 34 g/dL (31-37); MEAN CORPUSCULAR VOLUME 88 fL (79-100); MONO # 0.6 x10^3/uL (0.0-1.1); MONO % 6 % (0-9); NEUT # 4.5 x10^3uL (1.8-7.7); NEUT % 52 % (31-73); PLATELET COUNT 139 x10^3/uL (140-400); RED BLOOD COUNT 5.32 x10^6/uL (4.30-5.70); RED CELL DISTRIBUTION WIDTH 14.5 % (11.5-14.5); WHITE BLOOD COUNT 8.8 x10^3/uL (4.0-11.0)
[2020-02-26 02:42] LABS: BACTERIA,URINE 0 /HPF (0-FEW); BILIRUBIN,URINE NEG (NEG); CLARITY,URINE CLEAR; COLOR,URINE YELLOW; GLUCOSE,URINE 500 mg/dL (NEG); NITRITE,URINE NEG (NEG); RBC,URINE 0 /HPF (0-2); SQUAMOUS EPITHELIAL CELL,UR OCC /LPF; UROBILINOGEN,URINE 0.2 mg/dL (0.2 mg/dL); WBC,URINE RARE /HPF (0-4)
[2020-02-26 02:45] LABS: CALCIUM 9.3 mg/dL (8.5-10.1); GFR 82.8
[2020-02-26 02:47] LABS: BARBITURATES NEG (NEG); BENZODIAZEPINES POS (NEG); CANNABINOIDS NEG (NEG); COCAINE NEG (NEG); METHADONE NEG (NEG); OPIATES NEG (NEG); PHENCYCLIDINE NEG (NEG)
[2020-02-26 02:50] LABS: AMPHETAMINE/METHAMPHETAMINE NEG (NEG)
[2020-02-26 02:52] LABS: ALBUMIN 3.7 g/dL (3.4-5.0); ALBUMIN/GLOBULIN RATIO 1.1 (1.0-1.7); TOTAL BILIRUBIN 0.3 mg/dL (0.2-1.0)
--- NOTE | 2020-02-26 03:20 | PHYS DOC ---
Past History Past Medical History: Asthma, Depression, Diabetes, Hypertension, Schizophrenia (GERMAIN HIGGINS MD) Past Surgical History: No Surgical History (GERMAIN HIGGINS MD) Smoking: Cigarettes Alcohol Use: Occasionally Drug Use: None (GERMAIN HIGGINS MD) Adult General Chief Complaint Chief Complaint: SUICIDAL IDEATION [facility] HPI Patient is a 39-year-old male with past medical history of depression who presents to the emergency room complaining of suicidal ideations. Patient states that he was going to jump off of the balcony of his apartment building but decided not to call 911 instead. He has been having intermittent suicidal ideations for the last 4 years. He [facility] with [facility] for this. He has been taking his medications as prescribed. Denies any other symptoms or concerns (GERMAIN HIGGINS MD) Review of Systems Review of Systems Complete ROS is negative unless otherwise documented in HPI (GERMAIN HIGGINS MD) Allergies Allergies Allergies Coded Allergies Type Severity Reaction Last Updated Verified codeine Allergy Intermediate 05/26/15 Yes (GERMAIN HIGGINS MD) Physical Exam Physical Exam General: Awake, alert, NAD. Well Nourished, well hydrated. Cooperative HEENT: Atraumatic, EOMI, PERRL, airway patent, moist oral mucosa Neck: Supple, trachea midline Respiratory: CTA bilaterally, normal effort, no wheezing/crackles CV: RRR, no murmur, cap refill <2 GI: Soft, nondistended, nontender, no masses MSK: No obvious deformities Skin: Warm, dry, intact Neuro: A&O x3, speech NL, sensory and motor grossly intact, no focal deficits Psych: Normal affect, normal mood, suicidal (GERMAIN HIGGINS MD) Current Patient Data Lab Results Laboratory Tests Test 02/26/20 02:00 02/26/20 02:05 White Blood Count 8.8 x10^3/uL (4.0-11.0) Red Blood Count 5.32 x10^6/uL (4.30-5.70) Hemoglobin 15.7 g/dL (13.0-17.5) Hematocrit 47.0 % (39.0-53.0) Mean Corpuscular Volume 88 fL (79-100) Mean Corpuscular Hemoglobin 30 pg (25-35) Mean Corpuscular Hemoglobin Concent 34 g/dL (31-37) Red Cell Distribution Width 14.5 % (11.5-14.5) Platelet Count 139 x10^3/uL (140-400) L Neutrophils (%) (Auto) 52 % (31-73) Lymphocytes (%) (Auto) 38 % (24-48) Monocytes (%) (Auto) 6 % (0-9) Eosinophils (%) (Auto) 3 % (0-3) Basophils (%) (Auto) 1 % (0-3) Neutrophils # (Auto) 4.5 x10^3uL (1.8-7.7) Lymphocytes # (Auto) 3.3 x10^3/uL (1.0-4.8) Monocytes # (Auto) 0.6 x10^3/uL (0.0-1.1) Eosinophils # (Auto) 0.3 x10^3/uL (0.0-0.7) Basophils # (Auto) 0.1 x10^3/uL (0.0-0.2) Sodium Level 135 mmol/L (136-145) L Potassium Level 4.0 mmol/L (3.5-5.1) Chloride Level 100 mmol/L (98-107) Carbon Dioxide Level 29 mmol/L (21-32) Anion Gap 6 (6-14) Blood Urea Nitrogen 10 mg/dL (8-26) Creatinine 1.0 mg/dL (0.7-1.3) Estimated GFR (Cockcroft-Gault) 82.8 BUN/Creatinine Ratio 10 (6-20) Glucose Level 247 mg/dL (70-99) H Calcium Level 9.3 mg/dL (8.5-10.1) Total Bilirubin 0.3 mg/dL (0.2-1.0) Aspartate Amino Transferase (AST) 39 U/L (15-37) H Alanine Aminotransferase (ALT) 154 U/L (16-63) H Alkaline Phosphatase 69 U/L (46-116) Total Protein 7.0 g/dL (6.4-8.2) Albumin 3.7 g/dL (3.4-5.0) Albumin/Globulin Ratio 1.1 (1.0-1.7) Ethyl Alcohol Level < 10 mg/dL (0-10) Urine Collection Type Unknown Urine Color Yellow Urine Clarity Clear Urine pH 5.5 Urine Specific Goldsmith 1.020 Urine Protein Neg (NEG-TRACE) Urine Glucose (UA) 500 mg/dL (NEG) Urine Ketones (Stick) Neg mg/dL (NEG) Urine Blood Neg (NEG) Urine Nitrite Neg (NEG) Urine Bilirubin Neg (NEG) Urine Urobilinogen Dipstick 0.2 mg/dL (0.2 mg/dL) Urine Leukocyte Esterase Neg (NEG) Urine RBC 0 /HPF (0-2) Urine WBC Rare /HPF (0-4) Urine Squamous Epithelial Cells Occ /LPF Urine Bacteria 0 /HPF (0-FEW) Urine Opiates Screen Neg (NEG) Urine Methadone Screen Neg (NEG) Urine Barbiturates Neg (NEG) Urine Phencyclidine Screen Neg (NEG) Urine Amphetamine/Methamphetamine Neg (NEG) Urine Benzodiazepines Screen Pos (NEG) Urine Cocaine Screen Neg (NEG) Urine Cannabinoids Screen Neg (NEG) Urine Ethyl Alcohol (NEG) (GERMAIN HIGGINS MD) EKG EKG [] (GERMAIN HIGGINS MD) Radiology/Procedures Radiology/Procedures [] (GERMAIN HIGGINS MD) Heart Score Risk Factors: Risk Factors: DM, Current or recent (<one month) smoker, HTN, HLP, family history of CAD, obesity. Risk Scores: Risk Factors: DM, Current or recent (<one month) smoker, HTN, HLP, family history of CAD, obesity. (GERMAIN HIGGINS MD) Course & Med Decision Making Course & Med Decision Making Pertinent Labs and Imaging studies reviewed. (See chart for details) Patient is a 39-year-old with a history of depression who presents to the Emergency Room with suicidal ideations. Upon arrival the the Emergency Room, patient was changed into a gown and personal belongings were taken to security for safety. Patient was placed on a one-on-one. Lab work was ordered if requested by psychiatric team. PAT team was consulted for evaluation. After discussion with PAT team the decision was made to pursue inpatient. (GERMAIN HIGGINS MD) Course & Med Decision Making Assumed care of patient from off-going physician Monitored throughout entirety of my shift without issues Patient accepted to [facility] under the care of Dr. Zamora. Patient updated on this and amenable to transfer. My shift has ended and patient stabilized in ED awaiting ED transport. Oncoming physician, Dr. Ham aware of patient and situation. Please defer to future documentation if any medical activity/incidents occur prior to departure (GERI MARRERO DO) Dragon Disclaimer Dragon Disclaimer This electronic medical record was generated, in whole or in part, using a voice recognition dictation system. (GERMAIN HIGGINS MD) Departure Departure: Impression: Primary Impression: Suicidal ideation Additional Impression: Depressed Disposition: 65 DC/TRF TO PSYCH HOSP ([facility]) Admitting Physician: Other (Dr. Zamora) (GERI MARRERO DO) Condition: STABLE Referrals: JOSE MOYER (PCP) Problem Qualifiers GERMAIN HIGGINS MD Feb 26, 2020 03:19 GERI MARRERO DO Feb 26, 2020 18:52
[2020-02-26 13:12] VITALS: BP 135/69
== END 2020-02-26 21:20 ==
LOC: ER 01:43
DX: R45.851 Suicidal ideations (principal); F32.9 Major depressive disorder, single episode, unspecified; J45.909 Unspecified asthma, uncomplicated; E11.9 Type 2 diabetes mellitus without complications; I10 Essential (primary) hypertension; F20.9 Schizophrenia, unspecified; F17.210 Nicotine dependence, cigarettes, uncomplicated; Z20.828 Contact with and (suspected) exposure to other viral communicable diseases; Z88.5 Allergy status to narcotic agent
CPT/HCPCS: 36415; 80053; 80178; 80307; 81001; 85025; 87426; 99285; C9803; G0480; U0003

== ENCOUNTER 2020-10-30 04:42 | Emergency (ER) | payer OTHER ==
[~2020-10-30] VITALS: Ht 182.9 cm; Wt 106.8 kg
[~2020-10-30 04:42] MED LIST changes: -CIPR500T PO; +CIPR500T2 PO
[2020-10-30 04:55] VITALS: BP 151/95
[2020-10-30] MEDS ORDERED: LIDO:MAALOX 1:1 20 ML SINGLE DOSE. PO ONE (05:15)
--- NOTE | 2020-10-30 05:17 | PHYS DOC ---
Past History Past Medical History: Asthma, Depression, Diabetes, Hypertension, Schizophrenia Additional Past Medical Histor: SCHIZOAFFECTIVE DISORDER Past Surgical History: Other Additional Past Surgical Histo: CYST Smoking: Cigarettes Alcohol Use: Occasionally Drug Use: None Adult General Chief Complaint Chief Complaint: CHEST PAIN HPI HPI Patient is a 40-year-old male with a past medical history significant for asthma and schizophrenia who presents with a day and a half of centralized chest pain, with no obvious aggravating or alleviating factors and no exertional component which started a couple days ago while he was sitting and watching TV. Denies any recent dyspnea on exertion, orthopnea, PND or edema. Denies any cardiac history. Denies any history of VTE. Denies any recent trauma, travels, illnesses, fevers, shortness of breath, abdominal pain, nausea, vomiting, dysuria, hematuria, diarrhea or blood in the stool. Denies any alcohol or drug use. States he does smoke at least a pack of cigarettes a day. Review of Systems Review of Systems Review of systems otherwise unremarkable except noted in HPI Allergies Allergies Allergies Coded Allergies Type Severity Reaction Last Updated Verified codeine Allergy Intermediate 05/26/15 Yes Physical Exam Physical Exam Constitutional: Well developed, well nourished, no acute distress, non-toxic appearance. [] HENT: Normocephalic, atraumatic, Eyes: conjunctiva normal, no discharge. [] Neck: Normal range of motion, no tenderness, supple, no stridor. [] Cardiovascular:Heart rate regular rhythm, no murmur [] Lungs & Thorax: Bilateral breath sounds clear to auscultation [] Abdomen: soft, no tenderness, no masses, no pulsatile masses. [] Skin: Warm, dry, no erythema, no rash. [] Extremities: No tenderness, ROM intact, no edema. [] Neurologic: Alert and oriented X 3, normal motor function, normal sensory function, no focal deficits noted. [] Psychologic: Affect normal, judgement normal, mood normal. [] Current Patient Data Vital Signs Vital Signs Date Time Temp Pulse Resp B/P (MAP) Pulse Ox O2 Delivery O2 Flow Rate FiO2 10/30/20 04:55 98.4 108 20 151/95 98 Room Air EKG EKG EKG with a rate of 107, QRS of 84, QTc of 419, no STEMI [] Radiology/Procedures Radiology/Procedures [] Heart Score C/O Chest Pain: Yes HEART Score for Chest Pain: HEART Score for Chest Pain Response (Comments) Value History Slighlty/Non-Suspicious 0 ECG Normal 0 Age < 45 0 Risk Factors 1 or 2 Risk Factors 1 Troponin < Normal Limit 0 Total 1 Risk Factors: Risk Factors: DM, Current or recent (<one month) smoker, HTN, HLP, family history of CAD, obesity. Risk Scores: Risk Factors: DM, Current or recent (<one month) smoker, HTN, HLP, family history of CAD, obesity. Course & Med Decision Making Course & Med Decision Making Patient is a 40-year-old male who presents with 1 to 2 days of chest pain Vital signs notable for sinus tachycardia. Physical exam noted above. EKG note d above with no STEMI. Placed on the monitor with IV access established. Given aspirin. Laboratory analysis notable for elevated troponin. Discussed patient with Dr. Hong and need for admission for non-ST elevation [place]. Started on heparin. Patient accepted by Dr. Hong to [facility] for continued evaluation and treatment by cardiology. Discussed all findings with patient and recommended transfer and admission to [facility] for continued cardiovascular evaluation and possible catheterization. Patient grateful, verbalized understanding and agreed with plan of transfer and admission. Dragon Disclaimer Dragon Disclaimer This electronic medical record was generated, in whole or in part, using a voice recognition dictation system. Departure Departure: Impression: Primary Impression: Chest pain Additional Impression: NSTEMI (non-ST elevated myocardial infarction) Disposition: [facility] Admitting Physician: Dianelys Hong Condition: STABLE Referrals: JOSE MOYER (PCP) Problem Qualifiers FROILAN JACKSON MD Oct 30, 2020 05:17
[2020-10-30 05:28] LABS: BASO # 0.1 x10^3/uL (0.0-0.2); BASO % 1 % (0-3); EOS # 0.1 x10^3/uL (0.0-0.7); EOS % 2 % (0-3); HEMATOCRIT 46.8 % (39.0-53.0); HEMOGLOBIN 16.1 g/dL (13.0-17.5); LYMPH # 2.2 x10^3/uL (1.0-4.8); LYMPH % 28 % (24-48); MEAN CORPUSCULAR HEMOGLOBIN 31 pg (25-35); MEAN CORPUSCULAR HGB CONC 34 g/dL (31-37); MEAN CORPUSCULAR VOLUME 89 fL (79-100); MONO # 0.5 x10^3/uL (0.0-1.1); MONO % 6 % (0-9); NEUT # 5.2 x10^3uL (1.8-7.7); NEUT % 63 % (31-73); PLATELET COUNT 167 x10^3/uL (140-400); RED BLOOD COUNT 5.26 x10^6/uL (4.30-5.70); RED CELL DISTRIBUTION WIDTH 14.5 % (11.5-14.5); WHITE BLOOD COUNT 8.2 x10^3/uL (4.0-11.0)
[2020-10-30 05:34] LABS: CREATININE 1.2 mg/dL (0.7-1.3); GFR 66.7; POTASSIUM 4.1 mmol/L (3.5-5.1)
[2020-10-30] MEDS ORDERED: HEPARIN for IV BOLUS 10,000 UNIT/10 ML VIAL. IV PRN (06:00)
[2020-10-30] MEDS ORDERED: ANTI-COAG MONITOR BY PHARMACY. MC PRN (06:00)
[2020-10-30] MEDS ORDERED: HEPARIN 25,000UTS/250ML PREMIX 250 ML IV PRN (06:00)
--- NOTE | 2020-10-30 06:06 | EKG ---
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
[2020-10-30] MEDS ORDERED: HEPARIN for IV BOLUS 10,000 UNIT/10 ML VIAL. IV ONE (06:15)
[2020-10-30] MEDS ORDERED: ASPIRIN CHEWABLE 81 MG TABLET. PO ONE (06:15)
--- NOTE | 2020-10-30 08:15 | RAD ---
Study: XR CHEST 1V Indication: Chest pain. Comparison: 08/28/2018 Findings: No confluent airspace infiltrate, pleural effusion or pneumothorax. The cardiomediastinal silhouette is within normal limits for size given AP technique. Impression: No acute radiographic abnormality of the chest. Electronically signed by: CARRINGTON KING MD (10/30/2020 8:13 AM) [id number]
== END 2020-10-30 08:10 | disposition short-term general hospital (02) ==
LOC: ER 04:42
DX: I21.4 Non-ST elevation (NSTEMI) myocardial infarction (principal); J45.909 Unspecified asthma, uncomplicated; F32.9 Major depressive disorder, single episode, unspecified; E11.9 Type 2 diabetes mellitus without complications; I10 Essential (primary) hypertension; F20.9 Schizophrenia, unspecified; F17.210 Nicotine dependence, cigarettes, uncomplicated; Z88.5 Allergy status to narcotic agent
CPT/HCPCS: 36415; 71045; 80048; 80178; 83735; 84484; 85025; 85610; 85730; 93005; 96365; 96375; 96376; 99285; J1644; J3010

== ENCOUNTER 2021-02-07 18:41 | Emergency (ER) | payer OTHER ==
[~2021-02-07] VITALS: Ht 182.9 cm; Wt 106.8 kg
[~2021-02-07 18:41] MED LIST changes: -LISI2.5T PO; +LISI2.5T12 PO
[2021-02-07] MEDS ORDERED: IV NORMAL SALINE 1,000ML 1,000 ML IV ONE (19:00)
--- NOTE | 2021-02-07 19:03 | PHYS DOC ---
Past History Past Medical History: Asthma, Depression, Diabetes, Hypertension, Schizophrenia Additional Past Medical Histor: SCHIZOAFFECTIVE DISORDER Past Surgical History: Other Additional Past Surgical Histo: CYST Smoking: Cigarettes Alcohol Use: Occasionally Drug Use: None Adult General Chief Complaint Chief Complaint: SUICIDAL IDEATION HPI HPI Patient is a 40-year-old male with a past medical history significant for anxiety, depression and multiple episodes of suicidal ideation attempts including cutting, and overdose who presents with a chief complaint of suicidal ideation and taking a handful of his medications in order to commit suicide. States he took 900 mg of lithium and a couple doses of a antiplatelet medications to try to achieve this. States he has been thinking about this for a while, off-and-on has tried it before. Denies any other alcohol or drug use. Denies any other substances. Denies any recent travel, trauma, illnesses, Covid/flu/cold symptoms. Denies any headache, change in vision, numbness/w eakness/tingling, chest pain, shortness of breath, abdominal pain, nausea, vomiting, dysuria, hematuria, blood in the stool or seizure activity/convulsions/muscle spasms. Review of Systems Review of Systems Review of systems otherwise unremarkable except noted in HPI Allergies Allergies Allergies Coded Allergies Type Severity Reaction Last Updated Verified codeine Allergy Intermediate 05/26/15 Yes Physical Exam Physical Exam Constitutional: Well developed, well nourished, no acute distress, non-toxic appearance. [] HENT: Normocephalic, atraumatic, bilateral external ears normal, oropharynx moist, no oral exudates, nose normal. [] Eyes: PERRLA, EOMI, conjunctiva normal, no discharge. [] Neck: Normal range of motion, no tenderness, supple, no stridor. [] Cardiovascular:Heart rate regular rhythm, no murmur [] Lungs & Thorax: Bilateral breath sounds clear to auscultation [] Abdomen: soft, no tenderness, no masses, no pulsatile masses. [] Skin: Warm, dry, no erythema, no rash. [] Back: No tenderness, no CVA tenderness. [] Extremities: No tenderness, no cyanosis, no clubbing, ROM intact, no edema. [] Neurologic: Alert and oriented X 3, normal motor function, normal sensory function, no focal deficits noted. [] Psychologic: Affect normal, judgement normal, mood normal. [] EKG EKG EKG with a rate of 79, QRS of 86, QTc of 414, no STEMI [] Radiology/Procedures Radiology/Procedures [] Heart Score C/O Chest Pain: No Risk Factors: Risk Factors: DM, Current or recent (<one month) smoker, HTN, HLP, family history of CAD, obesity. Risk Scores: Risk Factors: DM, Current or recent (<one month) smoker, HTN, HLP, family history of CAD, obesity. Course & Med Decision Making Course & Med Decision Making Patient is a 40-year-old male who presents with a chief complaint of suicidal ideation and attempt at overdose with his home medications Vital signs notable for hypertension. Physical exam noted above. EKG noted above but not concerning. Troponin not concerning. Placed on the monitor with IV access established and IV fluid given. Discussed patient with poison control and given all doses of home medications taken. Poison control recommended a 6-hour watch with repeat EKGs and lithium levels. Unfortunately lithium is a send out here and will not result till tomorrow. PAT team evaluated who felt he was appropriate for inpatient admission but has to wait until lithium level results and will be in the emergency department till tomorrow. Laboratory analysis not concerning. Toxicology not concerning. Patient still asymptomatic with no signs of lithium toxicity here in the ED. Discussed all findings with patient and recommended inpatient admission for continued evaluation and treatment of his suicidal ideation and attempts and lithium level confirmation. Patient grateful, verbalized understanding and agree with plan of observation in the ED to lithium level results and then admission to psychiatric facility. Dragon Disclaimer Dragon Disclaimer This electronic medical record was generated, in whole or in part, using a voice recognition dictation system. Departure Departure: Impression: Primary Impression: Suicidal ideation Additional Impression: Drug ingestion Dis[facility]: [facility] Condition: STABLE Referrals: JOSE MOYER (PCP) Problem Qualifiers FROILAN JACKSON MD Feb 07, 2021 19:03
--- NOTE | 2021-02-07 19:34 | EKG ---
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
[2021-02-07 19:36] LABS: BASO # 0.1 x10^3/uL (0.0-0.2); BASO % 1 % (0-3); EOS # 0.1 x10^3/uL (0.0-0.7); EOS % 2 % (0-3); HEMOGLOBIN 16.6 g/dL (13.0-17.5); LYMPH # 2.5 x10^3/uL (1.0-4.8); LYMPH % 28 % (24-48); MEAN CORPUSCULAR HEMOGLOBIN 30 pg (25-35); MEAN CORPUSCULAR HGB CONC 34 g/dL (31-37); MEAN CORPUSCULAR VOLUME 88 fL (79-100); MONO # 0.6 x10^3/uL (0.0-1.1); MONO % 6 % (0-9); NEUT # 5.7 x10^3uL (1.8-7.7); NEUT % 63 % (31-73); PLATELET COUNT 156 x10^3/uL (140-400); RED BLOOD COUNT 5.58 x10^6/uL (4.30-5.70); RED CELL DISTRIBUTION WIDTH 13.9 % (11.5-14.5)
[2021-02-07 19:49] LABS: CALCIUM 10.3 mg/dL (8.5-10.1); CREATININE 0.9 mg/dL (0.7-1.3)
[2021-02-07 19:54] LABS: ALBUMIN 4.1 g/dL (3.4-5.0); ALBUMIN/GLOBULIN RATIO 1.3 (1.0-1.7); MAGNESIUM 2.2 mg/dL (1.8-2.4); TOTAL BILIRUBIN 0.4 mg/dL (0.2-1.0); TOTAL PROTEIN 7.3 g/dL (6.4-8.2)
[2021-02-07 19:56] LABS: ACETAMIN < 2 mcg/mL (10-30); ETHANOL < 10 mg/dL (0-10); SALIC 4.2 mg/dL (2.8-20.0)
[2021-02-07 20:01] LABS: BARBITURATES NEG (NEG); BENZODIAZEPINES NEG (NEG); CANNABINOIDS NEG (NEG); COCAINE NEG (NEG); METHADONE NEG (NEG); OPIATES NEG (NEG); PHENCYCLIDINE NEG (NEG)
[2021-02-07 20:05] LABS: AMPHETAMINE/METHAMPHETAMINE NEG (NEG)
[2021-02-08 17:02] VITALS: BP 130/76
== END 2021-02-08 18:07 ==
LOC: ER 18:41
DX: T56.892A Toxic effect of other metals, intentional self-harm, initial encounter (principal); R45.851 Suicidal ideations; J45.909 Unspecified asthma, uncomplicated; E11.9 Type 2 diabetes mellitus without complications; I10 Essential (primary) hypertension; F20.9 Schizophrenia, unspecified; F17.210 Nicotine dependence, cigarettes, uncomplicated; Z20.822 Contact with and (suspected) exposure to COVID-19; Z88.5 Allergy status to narcotic agent; Y92.89 Other specified places as the place of occurrence of the external cause
CPT/HCPCS: 80053; 80178; 80307; 80329; 82947; 83735; 84484; 85025; 85610; 85730; 87426; 93005; 96360; 99285; G0480; J7030; U0003